=== PATIENT | female | born 1945 | race Caucasian/White ===

== ENCOUNTER 2017-11-24 14:51 | Outpatient (RCR) | payer MEDICARE ==
[2017-10-05 09:23] VITALS: BP 111/53
[2017-10-05 09:27] LABS: PLATELET COUNT, AUTOMATED 171 K/uL (150-450)
[~2017-11-24 14:51] MED LIST changes: +ALTEPLASE RECOMB 2 MG VIAL IVP PRN; +DEXTROSE 5%(*) 100 ML BAG 100 ML IVPB PRN; +HEPARIN FLSH (PORT) 500 UN/5ML IVP PRN; +LIDOCAINE/SOD BICARB 8.4% SYR ID PRN; +NS(*) 0.9% 100 ML BAG 100 ML IVPB PRN; +NS(*) 0.9% 500 ML BAG 500 ML IV PRN; +WATER STERILE 10 ML VIAL IVP PRN
== END 2018-01-03 ==
LOC: SPU 14:51
PROVIDERS: ATTEND Nurse Practitioner Family
DX: Z08 Encounter for follow-up examination after completed treatment for malignant neoplasm (principal); C88.0 Waldenstrom macroglobulinemia; R55 Syncope and collapse; R19.7 Diarrhea, unspecified; M19.90 Unspecified osteoarthritis, unspecified site; M54.2 Cervicalgia
CPT/HCPCS: 36591; 82040; 82247; 82310; 82374; 82435; 82565; 82947; 83735; 84075; 84100; 84132; 84155; 84295; 84450; 84460; 84520; 85025

== ENCOUNTER → 2017-11-24 | Outpatient (CLI) | payer MEDICARE ==
[~2017-11-24] MED LIST: ACET-2031 PO; ACY200 PO; ACYC-50 PO; BENZ1 PO; CALC-965 PO; CLIN-75 PO; DIC10 PO; DOXY-179 PO; DOXY-323 PO; HYDR-3503 PO; IPRA3AMP36 INH; KETC15T TP; LAMO200T46 PO; LOM PO; LOPE-111 PO; MUPI15CR10 TP; ONDA4TAB PO; OXYGEN INH; PANT40TA65 PO; POTA99TA22 PO; PYRI25TA PO; QUET50TA21 PO; ZITHROMAX; tumeric; tumeric PO
[2017-11-24 15:41] LABS: PLATELET COUNT, AUTOMATED 190 K/uL (150-450)
== END ==
LOC: SPU 15:23
PROVIDERS: ATTEND Nurse Practitioner Acute Care
DX: C88.0 Waldenstrom macroglobulinemia (principal); Z08 Encounter for follow-up examination after completed treatment for malignant neoplasm; R55 Syncope and collapse; R19.7 Diarrhea, unspecified; M19.90 Unspecified osteoarthritis, unspecified site; M54.2 Cervicalgia
CPT/HCPCS: 36591; 82040; 82247; 82310; 82374; 82435; 82565; 82947; 83735; 84075; 84100; 84132; 84155; 84295; 84450; 84460; 84520; 85025; 96523

== ENCOUNTER 2018-06-07 19:18 | Emergency (ER) | payer MEDICARE ==
[~2018-06-07 19:18] MED LIST changes: -ALTEPLASE RECOMB 2 MG VIAL IVP PRN; -DEXTROSE 5%(*) 100 ML BAG 100 ML IVPB PRN; -HEPARIN FLSH (PORT) 500 UN/5ML IVP PRN; -LIDOCAINE/SOD BICARB 8.4% SYR ID PRN; -NS(*) 0.9% 100 ML BAG 100 ML IVPB PRN; -NS(*) 0.9% 500 ML BAG 500 ML IV PRN; -WATER STERILE 10 ML VIAL IVP PRN
--- NOTE | 2018-06-07 19:22 | ER Report ---
History and Physical Time Seen By MD: 19:21 HPI/ROS CHIEF COMPLAINT: Shortness of breath, cough HISTORY OF PRESENT ILLNESS: 73-year-old female with extensive past medical history please see as noted below. Patient's had a cough for 2-3 days productive of green sputum. She denies fever or chills. She used her albuterol inhaler without improvement. Patient's concerned she be developing pneumonia. REVIEW OF SYSTEMS: Respiratory: As above Cardiovascular: No chest pain, no palpitations. Gastrointestinal: No vomiting, no abdominal pain. Musculoskeletal: No back pain. Allergies: Coded Allergies: shrimp (Verified Allergy, Severe, anaphalaxis, 10/07/15) Penicillins (Verified Allergy, Intermediate, feels high, doesn't help with pain, 10/07/15) sulfamethoxazole (Verified Allergy, Intermediate, SWELLING OF MUCOUS MEMBRANE, 10/07/15) trimethoprim (Verified Allergy, Intermediate, SWELLING OF MUCOUS MEMBRANE, 10/07/15) codeine (Verified Allergy, Unknown, 10/07/15) meperidine (Verified Adverse Reaction, Intermediate, N/V, 10/07/15) Uncoded Allergies: HAYFEVER (Allergy, Intermediate, RUNNY NOSE, SNEEZING, 02/29/12) Home Meds Active Scripts Cefuroxime Axetil (CEFUROXIME) 250 Mg Tablet, 250 MG PO BID for infection, #14 TAB Prov:CHRIS ALCARAZ DO 06/07/18 Reported Medications Cholecalciferol (Vitamin D3) (VITAMIN D3) 1,000 Unit Tablet, 1000 UNIT PO BID, TAB 06/07/18 Acyclovir (ACYCLOVIR) 200 Mg Capsule, 200 MG PO BID, #10 CAP 06/07/18 Doxycycline Hyclate (DOXYCYCLINE HYCLATE) 100 Mg Tablet, 400 MG PO BID PRN for PRN 10/07/15 Loperamide Hcl (LOPERAMIDE) 2 Mg Tablet, 8 MG PO PRN 10/07/15 Quetiapine Fumarate (SEROQUEL) 50 Mg Tablet, 50 MG PO QHS 10/07/15 Lamotrigine (LAMICTAL) 200 Mg Tablet, 200 MG PO QHS 10/07/15 Benztropine Mesylate (BENZTROPINE MESYLATE) 1 Mg Tablet, 1 MG PO PRN for cramps 10/07/15 Discontinued Reported Medications [tumeric] Unknown Strength No Conflict Check, PO QDAY 10/07/15 Past Medical/Surgical History Significant PMH of Anemia of chronic disease and Anemia of inflammation, secondary to Waldenstrom macroglobulinemia; Toxoplasmosis of the left eye; Emboli to the right second and third toes on anticoagulation since April of 2005. The patient is no longer on anticoagulation; Bipolar, on treatment. Incidental leiomyosarcoma during total abdominal hysterectomy and bilateral salpingo- oophorectomy done for a fibroid in 1993. Squamous cell skin cancer removed from right nose, right arm, and port site Living Conditions Lives alone. Social/Occupational History Social History: Social History This is a 73 Yr old White female, she is S Single and has [] Children Reviewed Nurses Notes: Yes Old Medical Records Reviewed: Yes Hx Smoking: No Smoking Status: Never Smoker Exposure to Second Hand Smoke?: No Hx Substance Use Disorder: No Hx Alcohol Use: Yes Constitutional Vital Sign - Last 24 Hours 06/07/18 06/07/18 06/07/18 06/07/18 19:22 19:22 19:30 19:33 Temp 98.0 Pulse 75 72 Resp 20 B/P (MAP) 140/80 140/80 (100) 135/92 (106) Pulse Ox 92 91 O2 Delivery Room Air 06/07/18 06/07/18 06/07/18 06/07/18 19:48 19:50 19:50 20:00 Pulse ??? 67 Resp 16 B/P (MAP) 124/65 (84) Pulse Ox 97 O2 Delivery Nasal Cannula O2 Flow Rate 1.0 06/07/18 06/07/18 20:03 20:18 Pulse 68 69 Pulse Ox 91 91 Physical Exam Vital signs stable, afebrile, pulse ox normal General Appearance: The patient is alert, has no immediate need for airway protection and no current signs of toxicity. Skin warm and dry, slightly pale appearing HEENT: Pupils equal and round no injection. TMs normal, oropharynx with moderate erythema, no exudate or tonsillar hypertrophy Respiratory: Chest is non tender, lungs are clear to auscultation. A few Velcro Rales were noted in the right base. Cardiac: regular rate and rhythm Gastrointestinal: Abdomen is soft and non tender, no masses, bowel sounds normal. Musculoskeletal: Neck: Neck is supple and non tender. No lymphadenopathy Extremities have full range of motion and are non tender. Skin: No rashes or lesions. DIFFERENTIAL DIAGNOSIS: After history and physical exam differential diagnosis was considered for shortness of breath including but not limited to pulmonary infectious process, COPD, asthma, pulmonary embolus and congestive heart failure. Medical Decision Making EKG/Imaging Imaging X-ray: Two-view chest x-ray was obtained. I viewed the images myself on the PACS system. My interpretation of the images is: No infiltrate, no effusion, normal mediastinum, intact port, comparison to previous chest x-ray dated 10/31/16. The radiologist interpretation had no clinically significant variation from this interpretation. ED Course/Re-evaluation ED Course Patient was admitted to an examination room. H&P was done. The differential diagnoses was considered. On clinical examination. Patient has a clear chest x-ray. She is treated with a DuoNeb. She feels much better. Her chest x-ray shows no obvious infiltrate. She'll be discharged home since she has significant immunosuppression on Ceftin for prevention of bronchitis and pneumonia. She is advised to follow-up with her oncology doctors if unimproved in 3-5 days. Decision to Disposition Date: Jun 07, 2018 Decision to Disposition Time: 20:01 Depart Departure Latest Vital Signs Vital Signs Date Time Temp Pulse Resp B/P (MAP) Pulse Ox O2 Delivery O2 Flow Rate FiO2 06/07/18 20:18 69 91 06/07/18 20:00 124/65 (84) 06/07/18 19:50 16 06/07/18 19:50 Nasal Cannula 1.0 06/07/18 19:22 98.0 Impression: Primary Impression: Bronchitis Additional Impressions: History of Waldenstrom's macroglobulinemia Near syncope Condition: Improved Disposition: HOME OR SELF-CARE Referrals: EDYTA HENRY DO (PCP) New Scripts Cefuroxime Axetil (CEFUROXIME) 250 Mg Tablet 250 MG PO BID for infection, #14 TAB Prov: CHRIS ALCARAZ DO 06/07/18 Patient Instructions: Acute Bronchitis (ED) Additional Instructions: Follow-up with oncology clinic if unimproved in 3-5 days. Problem Qualifiers CHRIS ALCARAZ DO Jun 07, 2018 19:22
[2018-06-07] MEDS ORDERED: ACYC-1 PO (19:37)
[2018-06-07] MEDS ORDERED: CHOL10005 PO (19:37)
[2018-06-07] MEDS ORDERED: ALBUTEROL/IPRATROPIUM 3 ML NEB NEB ONE (19:50)
[2018-06-07 20:00] VITALS: BP 124/65
--- NOTE | 2018-06-07 20:03 | RADIOLOGY IMAGING REPORT ---
FACILITY: [facility] PATIENT NAME: Jodee Fam : 1945 MR: [id number] V: [id number] EXAM DATE: ORDERING PHYSICIAN: CHRIS ALCARAZ TECHNOLOGIST: Location: [facility] Patient: Jodee Fam : 1945 Visit/Account:[id number] Date of Sevice: 06/07/2018 EXAMINATION: PA and Lateral Chest 06/07/2018 7:35 PM HISTORY: Congestion, productive cough. History of plasmacytosis. COMPARISON: 08/31/2017 FINDINGS: Cardiomediastinal contours: Stable heart size. Atherosclerotic aorta. Port catheter position is uncha nged with the tip over the lower SVC. Lungs and pleura: No change in pulmonary markings. No acute infiltrate or consolidation. Pleural spac es remain clear. Bones/soft tissues: No acute bony finding. IMPRESSION: Stable chest without acute cardiopulmonary abnormality. Report Dictated By: Orlando Person MD at 06/07/2018 7:58 PM Report E-Signed By: Orlnado Person MD at 06/07/2018 7:59 PM [id number]
[2018-06-07] MEDS ORDERED: CEFU250T11 PO (20:11)
[2018-06-07] MEDS ORDERED: CEFUROXIME AXETIL 250 MG TAB PO ONE (20:25)
== END 2018-06-07 20:40 | disposition home or self-care (01) ==
LOC: ER 19:35
DX: J40 Bronchitis, not specified as acute or chronic (principal); R55 Syncope and collapse; C88.0 Waldenstrom macroglobulinemia
CPT/HCPCS: 71046; 94640; 99283

== ENCOUNTER 2018-07-08 14:21 | Outpatient (RCR) | payer MEDICARE ==
[2018-04-25 14:17] LABS: PLATELET COUNT, AUTOMATED 212 K/uL (150-450)
[2018-04-26 13:13] VITALS: BP 128/60
--- NOTE | 2018-04-26 16:40 | Oncology Progress Note ---
History of Present Illness Evaluation Evaluation Date: Apr 26, 2018 Evaluation Time: 13:24 Primary Care Provider Primary Care Provider: Estee Mccall DO Accompanied by Accompanied by: Self Last seen by : Nurse Practitioner at cancer center on 10/05/13 Chief Complaint Chief Complaint Nutrition malabsorption ,and or deficit Oncology History Oncology History Initially was diagnosed in 2002 when she presented with a headache and an elevated ESR. She was thought to have temporal arteritis and a biopsy was negative. She was treated with high dose steroids without success. She was found during her elevation to have abnormal M protein. Her IgM level at that time was 2844. She was treated with a combination of fludarabine and rituximab in January of 2004 and October of 2004 and then the patient achieved a good partial response. - Her IgM level dropped to 1277 after that. - On May 08, 2005 she developed a discolored third toe of the right foot which showed an embolic occlusion. - There was also an embolic occlusion of the second right toe. - Patient had an autologous peroneal artery in the right leg and she was on anticoagulation therapy for that. Treatment Treatment 1. Between January of 2004 and March of 2004 she was treated with fludarabine and rituximab for three courses. Rituximab was discontinued after that due to a severe infusion reaction. 2. Between March of 2004 and October of 2004 she was treated with a single agent fludarabine for ten courses. 3. In July of 2008 she was treated with VDT-pace with prior stem cell harvest. 4. In June of 2009 to September of 2009 she received bortezomib, lenalidomide and dexamethasone for four courses. 5. In November of 2009 she received one course of fludarabine, most of her treatment was received at the center in [place]. 6. The patient was initially diagnosed with lymphoplasmacytic lymphoma or Waldenstrom macroglobulinemia in December of 2003, but she had an increased IgM level since 1998. 7. For progression of her disease, the patient received an autologous stem cell transplant in [place] in 2010. 8. On December 12, 2012, the patient followed with the myeloma clinic. At that time she was requiring several units of blood per week. She had positive Solomon test and unidentified antibodies. Bone marrow biopsy showed 25% lymphoplasmacytic cells, bone marrow cellularity was 60%. The patient was started on IVIg 30 grams times five days. 9. February 09, 2013 the patient was desensitized on January 23, 2013 from rituximab and received further rituximab dose on January 24, 2013. The patient then followed with Velcade and rituximab with rituximab on a weekly basis. 10. It is unclear exactly when the patient completed her full regimen of treatment. According to orders received on June 20, 2013 the patient was discharged to home with laboratory studies every other week and Aranesp and Neupogen therapy. BONE MARROW ASPIRATION BIOPSIES 1. April of 2006: 70% cellularity with 50% lymphoplasmacytic infiltrate, IgM level at that time was 1863. 2. June of 2008: 95% cellularity with 80% lymphoplasmacytic infiltrate, IgM level at that time was 3190. 3. May of 2009: Bone marrow was packed. 4. November of 2009: 90% cellularity with 80% lymphoplasmacytic cells. 5. December of 2009: 80% cellularity with 70% lymphoplasmacytic cells. 6. 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 with 50% bone marrow involvement with the presence of mass cells. Patient presented to the clinic to go over her lab values, and concerned for protein and nutrition intake. HS eis AAOX3, hemodynamically stable. denies cardiac type chest pain, SOB, abdominal pain, fevers, N/V. She does have history of IBS symptoms. Patient informs me that her protein intake mainly comes from pork, poultry and fish. She reports not able to eat beef as it makes her gut bleed. It appears that patient is being followed by different providers throughout her travelling, she tells me that she spends anywhere from 2 weeks to a whole year in [place], where she stays with her friends. She is mainly followed by Dr. Dru Barry a Hematology Oncologist at [facility], who specializes in Multiple Myeloma. She is been treated with similar protocol as MM patients. She was last seen seen by Dr. Barry team in 01/2018, a bone marrow biopsy was performed, and she is scheduled to get BM Biopsies q 3 months. Significant PMH of Anemia, secondary to Waldenstrom macroglobulinemia; Toxoplasmosis of the left eye; Emboli to the right second and third toes on anticoagulation since April of 2005. The patient is no longer on anticoagulation ; Bipolar, on treatment. 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 Diagnostic Studies Result Diagram: 04/25/18 1400 04/25/18 1400 Social/Occupational History Social History: Social History This is a 73 Yr old White female, she is S Single and has [] Children Hx Smoking: No Smoking Status: Never Smoker Exposure to Second Hand Smoke?: No Allergies & Medications Allergies: Coded Allergies: shrimp (Verified Allergy, Severe, anaphalaxis, 10/07/15) Penicillins (Verified Allergy, Intermediate, feels high, doesn't help with pain, 10/07/15) sulfamethoxazole (Verified Allergy, Intermediate, SWELLING OF MUCOUS MEMBRANE, 10/07/15) trimethoprim (Verified Allergy, Intermediate, SWELLING OF MUCOUS MEMBRANE , 10/07/15) codeine (Verified Allergy, Unknown, 10/07/15) meperidine (Verified Adverse Reaction, Intermediate, N/V, 10/07/15) Uncoded Allergies: HAYFEVER (Allergy, Intermediate, RUNNY NOSE, SNEEZING, 02/29/12) Home Meds Reported Medications Doxycycline Hyclate (DOXYCYCLINE HYCLATE) 100 Mg Tablet, 400 MG PO BID Y for PRN 10/07/15 [tumeric] Unknown Strength No Conflict Check, PO QDAY 10/07/15 Loperamide Hcl (LOPERAMIDE) 2 Mg Tablet, 8 MG PO PRN 10/07/15 Quetiapine Fumarate (SEROQUEL) 50 Mg Tablet, 50 MG PO QHS 10/07/15 Lamotrigine (LAMICTAL) 200 Mg Tablet, 200 MG PO QHS 10/07/15 Benztropine Mesylate (BENZTROPINE MESYLATE) 1 Mg Tablet, 1 MG PO PRN for cramps 10/07/15 Discontinued Reported Medications Clindamycin Hcl (CLINDAMYCIN HCL) 150 Mg Capsule, 150 MG PO BID, CAPSULE 10/07/15 Ketoconazole (KETOCONAZOLE) 15 Gm Cream..g., 1 BRANT TP QDAY, TUBE 10/07/15 Mupirocin Calcium (BACTROBAN) 15 Gm Cream..g., 1 BRANT TP QDAY 10/07/15 Acyclovir (ACYCLOVIR) 400 Mg Tablet, 400 MG PO BID, TAB 10/07/15 Discontinued Scripts Pantoprazole Sodium (PANTOPRAZOLE SODIUM) 40 Mg Tablet.dr, 40 MG PO QDAY, #30 TAB.SR Prov:GUSCLIFFORD CANAS 10/14/15 Review of Systems Constitution: Positive for Appetite/Weight Change, Denies Fever/Chills/Sweating , Denies Recent Infection, Denies Other HEENT: No EARS: Tinnitus, No NOSE: Nasal Discharge, No THROAT: Sore Throat, No EYES: Dipolpia, No EARS: Hearing Problems, No NOSE: Epistaxis, No THROAT: Mouth Ulcers, No EYES: Vision Change, No OTHER Respiratory: No Cough, No Expectoration, No Hemoptysis, No Shortness of Breath , No OTHER Cardiovascular: No Chest Pain, No Orthopnea, No Edema, No Palpitations, No OTHER Gastrointestinal: No Nausea, No Vomitting, Diarrehea, No Constipation, No Heart Burn, No Swallowing Difficulties, No Abdominal Pain, Other Gentiourinary: No Hematuria, No Dysuria, No Nocturia, No Other Musculoskeletal: Muscle Pain Hematological: No Bleeding, No Weakness, No Enlarged Lyph Nodes, No Bruising, No Fatigue, No Other Skin: No Skin Rash, Lumps, No Erythema, No Dry Skin, No Moist Skin, Other (of Basal and squamous cell ) Psychiatric: No Anxiety, No Depression, Other Vital Signs Vital Signs Temperature: 98.6 Pulse: 74 BP Systolic: 128 BP Diastolic: 60 Respiratory Rate: 16 O2 SAT: 90 O2 Delivery: Height (feet) Height (inches) 63.00 Weight lb: 128 Weight oz: Weight Kg (Gaetano): Pain: 0 ECOG-1 Strenuous physical activity restricted; fully ambulatory and able to carry out light work. Physical Exam General: Looks Stable, Well Developed, Well Nourished HEENT: HEAD:Atraumatic, No EYES: Conjuctivitis, No EYES: Icterus, No MOUTH: Mucocitis, No MOUTH: Oral Thrush, No SINUS: Tenderness to Palpation, No Other Neck: Supple, No Cervical Lymphadenopathy, No Subclavicular Lymphadopathy, No Thyromegaly, No Other Lungs: Clear to Auscultation, Percussion Bilaterally Heart: Regular Rate and Rhythm, No Gallops, No Murmurs, No Clicks, No Rubs, No Other Abdomen: Soft and Nontender, No Hepatosplenomegaly, No Masses, No Other Extremities: No Cyanosis, No Clubbing, No Edema, No Other Lymphatics: No Peripheral Lymphadenopathy, No Other Psychiatric: No Mood appears normal, No Affect appears normal, No Other Skin: Mild Errythema Breast: No No Masses, No No Nipple Discharge, No No Skin Changes, No Other Assessment and Plan Assessment and Plan 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 with 50% bone marrow involvement with the presence of mass cells. Significant PMH of Anemia, secondary to Waldenstrom macroglobulinemia; Toxoplasmosis of the left eye; Emboli to the right second and third toes on anticoagulation since April of 2005. The patient is no longer on anticoagulation ; Bipolar, on treatment. 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 DIAGNOSTIC DATA WBC 3.0; hgb 12.3; Hct 36.4; Platelet count 212k; ANC 1.0;BUN 22; Creatinine 1.20; Total Protein 6.5; Albumin 4.0. - 1. 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 Patientt's on treatment with Dr. Barry in [place], last saw MD in 01/2018 for full treatment, work up and bone marrow biopsy. We will continue to monitor counts monthly and offer supportive measures as needed. -2. Nurtitonal deficit /malabosrption. Total Protein 6.5; Albumin 4.0. in the setting of multifactorial disease given IBS. there is no cachexia, we will do a B12, folate work up for any nutritional deficiencies. as well as cold storage supervisor consult. patient informs me she is following up with GI Dr. Gaines in [place] towards end of April2018. - 3. Hx of skin squamous cell, basal cell carcinoma. per patient she has been treated with removal of skin cancer by Dermatology in [place]. She has a f/ u appointment in 06/2018 - 4. Hx of Anaphylactic allergic reactions. Last reactions was approximately 2 years ago. patient will be prescribe epipen to carry with her . - 5. Hx of Anemia. patient is asymptomatic with a hgb of 12.3 today.given the fact that last work up in the system was done in 2011. we will repeat work up panel today. CHRONIC 1. Lymphoplasmacytic lymphoma diagnosed in December of 2003. 2. Emboli in the second and third toes in April of 2005, completed anticoagulation therapy. 3. Hemangioma 1.5 cm diagnosed in April of 2006. 4. Left eye toxoplasmosis initially treated with Daraprim, clindamycin and leucovorin diagnosed in September of 2008. 5. Bipolar disorder. on treatment 6. 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 PLAN 1. Anemia Panel I work up, including Vitamin D 25 hydroxy 2. EPi pen 0.3mg/0.3ml to be administered Imx1 as needed. 3. Acyclovir 400mg PO BID #60pills PPfx antiviral 4. Nutrition consult with Dietiticharity Bennett, Nursing staff to call patient with appointment time. 5. Patient to provide medical record release to get notes and reports from Dr. Barry, and other providers, including Bone marrow report done on 01/2018, GI, and Dermatology report. 6. patient to f/u in 4 weeks with results of work up, and reports from different providers. 7. patient to contact cancer center with any issues or concerns TIME SPENT: 60 minutes 55> minutes includes but not limited to discussion, counselling and co-ordination~ of care. Discussion with other health care providers, record review, review of lab work, diagnostic tests. Plan discussed extensively with patient. All the questions answered today. Thank you for the opportunity to be involved in the care of Ms. Sarwat Ellsworth. Billing Level: Return visit 5 ANANTH ALEX, ONC Apr 26, 2018 13:24
[2018-04-27 10:16] VITALS: BP 123/60
[2018-05-31 12:15] VITALS: BP 122/70
--- NOTE | 2018-05-31 12:48 | Oncology Progress Note ---
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 She was thought to have temporal arteritis and a biopsy was negative. She was treated with high dose steroids without success. She was found during her elevation to have abnormal M protein. Her IgM level at that time was 2844. She was treated with a combination of fludarabine and rituximab in January of 2004 and October of 2004 and then the patient achieved a good partial response. - Her IgM level dropped to 1277 after that. - On May 08, 2005 she developed a discolored third toe of the right foot which showed an embolic occlusion. - There was also an embolic occlusion of the second right toe. - Patient had an autologous peroneal artery in the right leg and she was on anticoagulation therapy for that. Treatment Treatment 1. Between January of 2004 and March of 2004 she was treated with fludarabine and rituximab for three courses. Rituximab was discontinued after that due to a severe infusion reaction. 2. Between March of 2004 and October of 2004 she was treated with a single agent fludarabine for ten courses. 3. In July of 2008 she was treated with VDT-pace with prior stem cell harvest. 4. In June of 2009 to September of 2009 she received bortezomib, lenalidomide and dexamethasone for four courses. 5. In November of 2009 she received one course of fludarabine, most of her treatment was received at the center in [place]. 6. The patient was initially diagnosed with lymphoplasmacytic lymphoma or Waldenstrom macroglobulinemia in December of 2003, but she had an increased IgM level since 1998. 7. For progression of her disease, the patient received an autologous stem cell transplant in [place] in 2010. 8. On December 12, 2012, the patient followed with the myeloma clinic. At that time she was requiring several units of blood per week. She had positive Solomon test and unidentified antibodies. Bone marrow biopsy showed 25% lymphoplasmacytic cells, bone marrow cellularity was 60%. The patient was started on IVIg 30 grams times five days. 9. February 09, 2013 the patient was desensitized on January 23, 2013 from rituximab and received further rituximab dose on January 24, 2013. The patient then followed with Velcade and rituximab with rituximab on a weekly basis. 10. It is unclear exactly when the patient completed her full regimen of treatment. According to orders received on June 20, 2013 the patient was discharged to home with laboratory studies every other week and Aranesp and Neupogen therapy. BONE MARROW ASPIRATION BIOPSIES 1. April of 2006: 70% cellularity with 50% lymphoplasmacytic infiltrate, IgM level at that time was 1863. 2. June of 2008: 95% cellularity with 80% lymphoplasmacytic infiltrate, IgM level at that time was 3190. 3. May of 2009: Bone marrow was packed. 4. November of 2009: 90% cellularity with 80% lymphoplasmacytic cells. 5. December of 2009: 80% cellularity with 70% lymphoplasmacytic cells. 6. 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 with 50% bone marrow involvement with the presence of mass cells. Patient presented to the clinic todaya for management of her disease. She met with pipe blanks cut off saw operator, and she will implement the recommendations. We reviewed her labs in detail, besides Vit D level of 15, all other work up are within acceptable parameters. she is AAOX3 with some signs of memory loss, as she informs me that she will b attending a seminar [facility] in [place] about improving ones memory. Patient is hemodynamically stable, and afebrile, and doing well overall. She expressed to me the need to address her code status, as she would like to be made DNR/ DNI starting today 05/31/2018. I did arrange the assistance of Kelsi social media strategist to obtain forms. She denies cardiac type chest pain, SOB, abdominal pain, fevers, N/V. She does have history of IBS symptoms(controlled). Patient informs me that she had a skin cancerous lesions scraped out last Romel by her Staff Command And Control Officer in [place], she also saw the GI doctor , and he did not add or change any plan to her treatment. she plan to visit her Passenger Interline Clerk in [place] by 07/2018. She does spends anywhere from 2 weeks to a whole year in [place], where she stays with her friends. She is mainly followed by Dr. Dru Barry a Hematology Oncologist at [facility], who specializes in Multiple Myeloma. She is been treated with similar protocol as MM patients. She was last seen seen by Dr. Barry team in 02/03/2018, a bone marrow biopsy was performed, and she is scheduled to get BM Biopsies q 3 months , next one due in 07/2018. Recently had squamous cells recently removed from right cheek, right chest beside her chest port, and right forearm by dermatology. Significant PMH of Anemia of chronic disease and Anemia of inflammation, secondary to Waldenstrom macroglobulinemia; Toxoplasmosis of the left eye; Emboli to the right second and third toes on anticoagulation since April of 2005. The patient is no longer on anticoagulation; Bipolar, on treatment. 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 Living Conditions Lives alone. Social/Occupational History Social History: Social History This is a 73 Yr old White female, she is S Single and has [] Children Hx Smoking: No Smoking Status: Never Smoker Exposure to Second Hand Smoke?: No Allergies & Medications Allergies: Coded Allergies: shrimp (Verified Allergy, Severe, anaphalaxis, 10/07/15) Penicillins (Verified Allergy, Intermediate, feels high, doesn't help with pain, 10/07/15) sulfamethoxazole (Verified Allergy, Intermediate, SWELLING OF MUCOUS MEMBRANE, 10/07/15) trimethoprim (Verified Allergy, Intermediate, SWELLING OF MUCOUS MEMBRANE , 10/07/15) codeine (Verified Allergy, Unknown, 10/07/15) meperidine (Verified Adverse Reaction, Intermediate, N/V, 10/07/15) Uncoded Allergies: HAYFEVER (Allergy, Intermediate, RUNNY NOSE, SNEEZING, 02/29/12) Home Meds Reported Medications Doxycycline Hyclate (DOXYCYCLINE HYCLATE) 100 Mg Tablet, 400 MG PO BID Y for PRN 10/07/15 [tumeric] Unknown Strength No Conflict Check, PO QDAY 10/07/15 Loperamide Hcl (LOPERAMIDE) 2 Mg Tablet, 8 MG PO PRN 10/07/15 Quetiapine Fumarate (SEROQUEL) 50 Mg Tablet, 50 MG PO QHS 10/07/15 Lamotrigine (LAMICTAL) 200 Mg Tablet, 200 MG PO QHS 10/07/15 Benztropine Mesylate (BENZTROPINE MESYLATE) 1 Mg Tablet, 1 MG PO PRN for cramps 10/07/15 Review of Systems Constitution: Positive for Appetite/Weight Change, Denies Fever/Chills/Sweating , Denies Recent Infection, Denies Other HEENT: No EARS: Tinnitus, No NOSE: Nasal Discharge, No THROAT: Sore Throat, No EYES: Dipolpia, No EARS: Hearing Problems, No NOSE: Epistaxis, No THROAT: Mouth Ulcers, No EYES: Vision Change, No OTHER Respiratory: No Cough, No Expectoration, No Hemoptysis, No Shortness of Breath , No OTHER Cardiovascular: No Chest Pain, No Orthopnea, No Edema, No Palpitations, No OTHER Gastrointestinal: No Nausea, No Vomitting, Diarrehea, No Constipation, No Heart Burn, No Swallowing Difficulties, No Abdominal Pain, Other Gentiourinary: No Hematuria, No Dysuria, No Nocturia, No Other Musculoskeletal: Muscle Pain Hematological: No Bleeding, No Weakness, No Enlarged Lyph Nodes, No Bruising, No Fatigue, No Other Skin: No Skin Rash, Lumps, No Erythema, No Dry Skin, No Moist Skin, Other (of Basal and squamous cell ) Psychiatric: No Anxiety, No Depression, Other Vital Signs Vital Signs Temperature: 97.9 Pulse: 60 BP Systolic: 122 BP Diastolic: 70 Respiratory Rate: 16 O2 SAT: 95 O2 Delivery: Height (feet) Height (inches) 63.00 Weight lb: 128 Weight oz: Weight Kg (Gaetano): Pain: 0 Physical Exam General: Looks Stable, Well Developed, Well Nourished HEENT: HEAD:Atraumatic, No EYES: Conjuctivitis, No EYES: Icterus, No MOUTH: Mucocitis, No MOUTH: Oral Thrush, No SINUS: Tenderness to Palpation, Other Neck: Supple, No Cervical Lymphadenopathy, No Subclavicular Lymphadopathy, No Thyromegaly, No Other Lungs: Clear to Auscultation, Percussion Bilaterally Heart: Regular Rate and Rhythm, No Gallops, No Murmurs, No Clicks, No Rubs, No Other Abdomen: Soft and Nontender, No Hepatosplenomegaly, No Masses, No Other Extremities: No Cyanosis, No Clubbing, No Edema, No Other Lymphatics: No Peripheral Lymphadenopathy, No Other Psychiatric: No Mood appears normal, No Affect appears normal, Other Skin: Mild Errythema, Other (squmous cells recently removed from right cheek, right chest beside her chest port, and right forearm by derm.) Breast: No No Masses, No No Nipple Discharge, No No Skin Changes, No Other Assessment and Plan Assessment and Plan 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 with 50% bone marrow involvement with the presence of mass cells. Patient presented to the clinic todaya for management of her disease. She met with pipe blanks cut off saw operator, and she will implement the recommendations. We reviewed her labs in detail, besides Vit D level of 15, all other work up are within acceptable parameters. she is AAOX3 with some signs of memory loss, as she informs me that she will b attending a seminar [facility] in [place] about improving ones memory. Patient is hemodynamically stable, and afebrile, and doing well overall. she denies cardiac type chest pain, SOB, abdominal pain, fevers, N/V. She does have history of IBS symptoms(controlled). Patient Recently had squamous cells recently removed from right cheek, right chest beside her chest port, and right forearm by dermatology on 06/27/2018 aprox per patient. Excisionals, healing, no drainage, no signs of infection. DIAGNOSTIC DATA as of WBC 3.0; hgb 12.3; Hct 36.4; Platelet count 212k; ANC 1.0;BUN 22; Creatinine 1.20; Total Protein 6.5; Albumin 4.0. Vitamin B12 990; Elin Sibley capacity 80.31; vitamin D 25 hydroxy 15; folate > 22.3 - 1. 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 Patientt's on treatment with Dr. Barry in [place], last saw MD in 01/2018 for full treatment, work up and bone marrow biopsy. We will continue to monitor counts monthly and offer supportive measures as needed. -2. Nurtitonal deficit /malabsorption. patient met with pipe blanks cut off saw operator today, and agrees with new treatment plan. Total Protein 6.5; Albumin 4.0. in the setting of multifactorial disease given IBS. there is no cachexia, we will do a B12, folate work up for any nutritional deficiencies. as well as pipe blanks cut off saw operator consult. patient informs me she is following up with GI Dr. Gaines in [place] towards end of April2018. - 3. Hx of skin squamous cell, basal cell carcinoma. Patient Recently had squamous cells recently removed from right cheek, right chest beside her chest port, and right forearm by dermatology on 06/27/2018 aprox per patient. Excisionals, healing, no drainage, no signs of infection. - 4. Hx of Anaphylactic allergic reactions. Last reactions was approximately 2 years ago. patient will be prescribe epipen to carry with her . - 5. Hx of Anemia. patient is asymptomatic with a hgb of 12.3 today. Anemia of chronic disease and Anemia of inflammation, secondary to Waldenstrom macroglobulinemia; anemia panel within acceptable parameters except Vit D of 15. Instructed patient to continue to take Vit D OTC 5000units Po BID. - 6. Vit D deficiency.lab value reveal a level of Vit D -15. Instructed patient to continue to take Vit D OTC 5000units Po BID. -7. Unsteady Gait. on exam patient has multiple bruises, she informs me is from bumping herself, as she gets a little weak on her feet. We will order a walker, and patient to continue PT. CHRONIC 1. Lymphoplasmacytic lymphoma diagnosed in December of 2003. 2. Emboli in the second and third toes in April of 2005, completed anticoagulation therapy. 3. Hemangioma 1.5 cm diagnosed in April of 2006. 4. Left eye toxoplasmosis initially treated with Daraprim, clindamycin and leucovorin diagnosed in September of 2008. 5. Bipolar disorder. on treatment 6. 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 PLAN 1. Anemia Panel I work up, including Vitamin D 25 hydroxy 2. EPi pen 0.3mg/0.3ml to be administered Imx1 as needed. 3. Continue to take Acyclovir 200mg PO BID #90pills plus one refill PPfx antiviral 4. Nutrition consult done today with Dietitian Sabrina, 5. We will order a wheeled walker Rx given to patient today, and patient to continue PT. 6. Patient to continue to f/u PRN 7. Patient expressed need to be made DNR/DNI today. 05/31/2018. form in the chart. Patient to contact cancer center with any issues or concerns TIME SPENT: 30 minutes 25> minutes includes but not limited to discussion, counselling and co-ordination~ of care. Discussion with other health care providers, record review, review of lab work, diagnostic tests. Plan discussed extensively with patient. All the questions answered today. Thank you for the opportunity to be involved in the care of Ms. Sarwat Ellsworth. Billing Level: Return visit 4 ANANTH ALEX, ONC May 31, 2018 12:47
[2018-05-31] MEDS: HEPARIN FLSH (PORT) 500 UN/5ML IVP PRN (13:34)
--- NOTE | 2018-05-31 14:54 | Medical Nutrition Therapy ---
Nutrition Anthropometrics Height (Inches): 63.00 Weight (Pounds): 128 (pt states her weight has been stable, UBW 135 lbs) Nutritional Education Nutrition Education Topic: Other (Diarrhea management ) Learning Readiness: Interested Teaching Methods: Discussion, Handout Response to Teaching: Verbalize understanding Teaching Recipient: Patient Nutrition Counseling: Patient stated she is concerned about diarrhea and swallowing/choking on food d/t dryness of food. reveiwed information on insoluble and soluble fiber and discussed ways to increase soluble fiber to help manage diarrhea. Patient agreed to track intake and GI symptoms she experiences post meals. Nutrition Monitoring & Eval Nutrition Goals: Eat 75-100% Meal, Drink > 1500 cc/day Nutritional Goals Comment: Patients EEN: 1500 - 1600 january/day with 50 gram of protein Encouraged patient to experiment with limiting legumes and whole grains (high fiber foods) to see if there is an improvement with her diarrhea Encouraged fluids with meals to help with dryness of foods RD Patient Assessment Time: [address] Assessment Type: RD Education Patient Nutrition Acuity: 3-Mild Nutritional Comment: Will F/U with patient next week to review intake tracking and symptoms and provide additional education if needed. SHAILA LESTER RDN, LD May 31, 2018 14:51
[~2018-07-08] VITALS: Ht 160 cm; Wt 58.1 kg
[~2018-07-08 14:21] MED LIST changes: +ACYC-1 PO; +ALTEPLASE RECOMB 2 MG VIAL IVP PRN; +CEFU250T11 PO; +CHOL10005 PO; +DEXTROSE 5%(*) 100 ML BAG 100 ML IVPB PRN; +LIDOCAINE/SOD BICARB 8.4% SYR ID PRN; +NS(*) 0.9% 100 ML BAG 100 ML IVPB PRN; +NS(*) 0.9% 500 ML BAG 500 ML IV PRN; +WATER FOR INJ,STERILE 20 ML IVP PRN
[2018-07-08 14:26] VITALS: BP 169/77
[2018-07-08] MEDS: HEPARIN FLSH (PORT) 500 UN/5ML IVP PRN (14:38)
== END 2018-07-21 ==
LOC: SPU 14:21
PROVIDERS: ATTEND Internal Medicine Hematology
DX: Z08 Encounter for follow-up examination after completed treatment for malignant neoplasm (principal); C88.0 Waldenstrom macroglobulinemia; D63.8 Anemia in other chronic diseases classified elsewhere; K90.9 Intestinal malabsorption, unspecified; Z85.828 Personal history of other malignant neoplasm of skin; F31.9 Bipolar disorder, unspecified; Z86.711 Personal history of pulmonary embolism
CPT/HCPCS: 36415; 82306; 82607; 82728; 82746; 82747; 83540; 83550; 83735; 83921; 84100; 85025; 96523; G0463; J1642; 82040; 82247; 82310; 82374; 82435; 82565; 82947; 84075; 84132; 84155; 84295; 84450; 84460; 84520; 99212

== ENCOUNTER 2018-09-20 14:30 | Outpatient (RCR) | payer MEDICARE | END 2018-09-20 16:47 | disposition home or self-care (01) | LOC: SPU 14:30 | PROVIDERS: ATTEND Internal Medicine Hematology | DX: Z08 Encounter for follow-up examination after completed treatment for malignant neoplasm (principal); C88.0 Waldenstrom macroglobulinemia; D63.8 Anemia in other chronic diseases classified elsewhere; K90.9 Intestinal malabsorption, unspecified; Z85.828 Personal history of other malignant neoplasm of skin; F31.9 Bipolar disorder, unspecified; Z86.711 Personal history of pulmonary embolism ==

== ENCOUNTER → 2018-09-20 | Outpatient (CLI) | payer MEDICARE ==
[~2018-09-20] MED LIST changes: -ALTEPLASE RECOMB 2 MG VIAL IVP PRN; -DEXTROSE 5%(*) 100 ML BAG 100 ML IVPB PRN; -LIDOCAINE/SOD BICARB 8.4% SYR ID PRN; -NS(*) 0.9% 100 ML BAG 100 ML IVPB PRN; -NS(*) 0.9% 500 ML BAG 500 ML IV PRN; -WATER FOR INJ,STERILE 20 ML IVP PRN
[2018-09-20 16:39] LABS: PLATELET COUNT, AUTOMATED 252 K/uL (150-450)
== END ==
LOC: SPU 15:30
PROVIDERS: ATTEND Internal Medicine Hematology & Oncology
DX: Z08 Encounter for follow-up examination after completed treatment for malignant neoplasm (principal); C88.0 Waldenstrom macroglobulinemia; D63.8 Anemia in other chronic diseases classified elsewhere; K90.9 Intestinal malabsorption, unspecified; Z85.828 Personal history of other malignant neoplasm of skin; F31.9 Bipolar disorder, unspecified; Z86.711 Personal history of pulmonary embolism; E85.9 Amyloidosis, unspecified
CPT/HCPCS: 82310; 82374; 82435; 82565; 82977; 83615; 83735; 84075; 84100; 84132; 84295; 84450; 84460; 84520; 85025; 96523

== ENCOUNTER → 2018-11-01 | Outpatient (CLI) | payer MEDICARE ==
[~2018-11-01] MED LIST changes: +ALTEPLASE RECOMB 2 MG VIAL IVP PRN; +DEXTROSE 5%(*) 100 ML BAG 100 ML IVPB PRN; +HEPARIN FLSH (PORT) 500 UN/5ML IVP PRN; +LIDOCAINE/SOD BICARB 8.4% SYR ID PRN; +NS(*) 0.9% 100 ML BAG 100 ML IVPB PRN; +NS(*) 0.9% 500 ML BAG 500 ML IV PRN; +WATER FOR INJ,STERILE 20 ML IVP PRN
[2018-11-01 14:55] VITALS: BP 158/94
[2018-11-01 15:23] LABS: PLATELET COUNT, AUTOMATED 217 K/uL (150-450)
== END ==
LOC: SPU 07:42
PROVIDERS: ATTEND Internal Medicine Hematology & Oncology
DX: Z08 Encounter for follow-up examination after completed treatment for malignant neoplasm (principal); C88.0 Waldenstrom macroglobulinemia; D63.8 Anemia in other chronic diseases classified elsewhere; K90.9 Intestinal malabsorption, unspecified; Z85.828 Personal history of other malignant neoplasm of skin; F31.9 Bipolar disorder, unspecified; Z86.711 Personal history of pulmonary embolism; E85.9 Amyloidosis, unspecified
CPT/HCPCS: 36591; 82310; 82565; 82977; 83615; 83735; 84075; 84100; 84450; 84460; 84520; 85025; J1642; 82374; 82435; 84132; 84295

== ENCOUNTER 2018-12-30 16:31 | Emergency (ER) | payer MEDICARE ==
[~2018-12-30 16:31] MED LIST changes: -ALTEPLASE RECOMB 2 MG VIAL IVP PRN; -DEXTROSE 5%(*) 100 ML BAG 100 ML IVPB PRN; -HEPARIN FLSH (PORT) 500 UN/5ML IVP PRN; -LIDOCAINE/SOD BICARB 8.4% SYR ID PRN; -NS(*) 0.9% 100 ML BAG 100 ML IVPB PRN; -NS(*) 0.9% 500 ML BAG 500 ML IV PRN; -WATER FOR INJ,STERILE 20 ML IVP PRN
--- NOTE | 2018-12-30 16:50 | ER Report ---
History and Physical Time Seen By MD: 16:50 Hx. of Stated Complaint: PATIENT REPORTS THAT SHE HAS HAD HIGH BLOOD PRESSURE FOR "A LONG TIME" HPI/ROS CHIEF COMPLAINT: Hypertension HISTORY OF PRESENT ILLNESS: 73-year-old female patient presents to emergency room with complaint of hypertension. Patient states that she has had high blood pressure for quite some time. Patient states that she has had a headache for the last few days. She went to her eye doctor because of the photophobia. She states that they checked her blood pressure and recommended that she follow-up with her primary care provider. She: Speak with her primary care provider, Dr. Fontanez, who informed her that she was leaving town today and it was not able to see her. She states that if symptoms persisted or worsened to go to the emergency room. Patient states she's had persistent headache for the past several days with no improvement. She has not taken any medications for these. Patient states that her blood pressure is variable and has been as high as 180 and then can get as low as 110. She states that medications tend to affect her quickly. REVIEW OF SYSTEMS: Respiratory: No cough, no dyspnea. Cardiovascular: No chest pain, no palpitations. Gastrointestinal: No vomiting, no abdominal pain. Musculoskeletal: No back pain. Allergies: Coded Allergies: shrimp (Verified Allergy, Severe, anaphalaxis, 10/07/15) Penicillins (Verified Allergy, Intermediate, feels high, doesn't help with pain, 10/07/15) sulfamethoxazole (Verified Allergy, Intermediate, SWELLING OF MUCOUS MEMBRANE, 10/07/15) trimethoprim (Verified Allergy, Intermediate, SWELLING OF MUCOUS MEMBRANE, 10/07/15) codeine (Verified Allergy, Unknown, 10/07/15) meperidine (Verified Adverse Reaction, Intermediate, N/V, 10/07/15) Uncoded Allergies: HAYFEVER (Allergy, Intermediate, RUNNY NOSE, SNEEZING, 02/29/12) Home Meds Active Scripts Lisinopril (LISINOPRIL) 10 Mg Tablet, 10 MG PO QDAY, #30 TAB Prov:EMMANUEL GARDINER COYOTE HUNTER 12/30/18 Reported Medications Cholecalciferol (Vitamin D3) (VITAMIN D3) 1,000 Unit Tablet, 1000 UNIT PO BID, TAB 06/07/18 Acyclovir (ACYCLOVIR) 200 Mg Capsule, 200 MG PO BID, #10 CAP 06/07/18 Loperamide Hcl (LOPERAMIDE) 2 Mg Tablet, 8 MG PO PRN 10/07/15 Quetiapine Fumarate (SEROQUEL) 50 Mg Tablet, 50 MG PO QHS 10/07/15 Lamotrigine (LAMICTAL) 200 Mg Tablet, 200 MG PO QHS 10/07/15 Benztropine Mesylate (BENZTROPINE MESYLATE) 1 Mg Tablet, 1 MG PO PRN for cramps 10/07/15 Discontinued Reported Medications Doxycycline Hyclate (DOXYCYCLINE HYCLATE) 100 Mg Tablet, 400 MG PO BID PRN for PRN 10/07/15 Discontinued Scripts Cefuroxime Axetil (CEFUROXIME) 250 Mg Tablet, 250 MG PO BID for infection, #14 TAB Prov:CHRIS ALCARAZ DO 06/07/18 Past Medical/Surgical History Patient has a past medical history of TIA, migraines, pericardial effusion, heart murmur, angina, irregular heartbeat, DVT, asthma, amyloidosis stomach, reflux, HPV, arthritis, rib fractures, HPV, alcohol use, bipolar, cancer. Patient has a surgical history of basal cell cancer removed, cataract surgery, tonsillectomy, back surgery, bunionectomy, hysterectomy, colonoscopy, hysterectomy, cardiac catheter. Patient has a family medical history of CAD, stroke. Reviewed Nurses Notes: Yes Hx Smoking: No Smoking Status: Never Smoker Exposure to Second Hand Smoke?: No Hx Substance Use Disorder: No Hx Alcohol Use: Yes Constitutional Vital Sign - Last 24 Hours 12/30/18 12/30/18 12/30/18 12/30/18 16:41 16:41 17:01 17:11 Temp 97.7 Pulse 76 67 Resp 20 9 B/P (MAP) 213/101 (138) 213/101 181/90 (120) Pulse Ox 92 95 O2 Delivery Room Air 12/30/18 12/30/18 12/30/18 12/30/18 17:31 17:35 18:01 18:06 Pulse 67 ??? Resp 17 B/P (MAP) 224/107 (146) Pulse Ox 95 80 12/30/18 12/30/18 12/30/18 12/30/18 18:30 18:36 18:41 18:56 Pulse 68 67 66 Resp 25 37 11 B/P (MAP) 199/94 (129) Pulse Ox 86 93 97 12/30/18 12/30/18 12/30/18 12/30/18 19:11 19:13 19:20 19:24 Pulse 69 Resp 14 B/P (MAP) 192/93 (126) 183/91 (121) 184/106 (132) Pulse Ox 84 12/30/18 12/30/18 12/30/18 12/30/18 19:26 19:30 19:35 19:40 Pulse 63 61 Resp 8 12 B/P (MAP) 152/78 (102) 141/76 (97) Pulse Ox 93 88 12/30/18 12/30/18 12/30/18 12/30/18 19:50 19:55 20:00 20:10 Pulse 57 Resp 8 16 12 B/P (MAP) 136/74 (94) 151/75 (100) 145/76 (99) Pulse Ox 90 96 96 12/30/18 12/30/18 12/30/18 20:20 20:25 20:30 Pulse 76 Resp 45 B/P (MAP) 140/85 (103) 141/92 (108) Physical Exam General Appearance: The patient is alert, has no immediate need for airway protection and no current signs of toxicity. Eyes: Pupils equal and round no injection. Respiratory: Chest is non tender, lungs are clear to auscultation. Cardiac: regular rate and rhythm Gastrointestinal: Abdomen is soft and non tender, no masses, bowel sounds normal. Musculoskeletal: Neck: Neck is supple and non tender. Extremities have full range of motion and are non tender. Skin: No rashes or lesions. Neuro: Patient is alert and oriented 4, cranial nerves II through XII grossly intact. DIFFERENTIAL DIAGNOSIS: After history and physical exam differential diagnosis was considered for headache including but not limited to subarachnoid hemorrhage, migraine headache, tension headache and infectious causes such as meningitis, pharyngitis and sinusitis. Medical Decision Making Data Points Result Diagram: 12/30/18 1735 12/30/18 1735 Laboratory Hematology Test 12/30/18 17:35 12/30/18 18:22 Red Blood Count 4.58 M/uL (4.17-5.56) Mean Corpuscular Volume 88.3 fL (80.0-96.0) Mean Corpuscular Hemoglobin 29.1 pg (26.0-33.0) Mean Corpuscular Hemoglobin Concent 33.0 g/dL (32.0-36.0) Red Cell Distribution Width 14.2 % (11.5-14.5) Mean Platelet Volume 7.0 fL (7.2-11.1) Neutrophils (%) (Auto) 53.9 % (39.4-72.5) Lymphocytes (%) (Auto) 34.7 % (17.6-49.6) Monocytes (%) (Auto) 7.7 % (4.1-12.4) Eosinophils (%) (Auto) 2.8 % (0.4-6.7) Basophils (%) (Auto) 0.9 % (0.3-1.4) Nucleated RBC Relative Count (auto) 0.0 /100WBC Neutrophils # (Auto) 2.3 K/uL (2.0-7.4) Lymphocytes # (Auto) 1.5 K/uL (1.3-3.6) Monocytes # (Auto) 0.3 K/uL (0.3-1.0) Eosinophils # (Auto) 0.1 K/uL (0.0-0.5) Basophils # (Auto) 0.0 K/uL (0.0-0.1) Nucleated RBC Absolute Count (auto) 0.00 K/uL Sodium Level 140 mmol/L (137-145) Potassium Level 4.2 mmol/L (3.5-5.0) Chloride Level 105 mmol/L (98-107) Carbon Dioxide Level 27 mmol/L (22-31) Blood Urea Nitrogen 20 mg/dl (7-18) Creatinine 1.30 mg/dl (0.52-1.04) Glomerular Filtration Rate Calc 40.3 Random Glucose 75 mg/dl (75-110) Calcium Level 9.1 mg/dl (8.4-10.2) Total Bilirubin 0.4 mg/dl (0.2-1.3) Aspartate Amino Transf (AST/SGOT) 37 U/L (0-35) Alanine Aminotransferase (ALT/SGPT) 18 U/L (0-56) Alkaline Phosphatase 113 U/L (0-126) Troponin I < 0.012 ng/ml Total Protein 6.7 g/dl (6.3-8.2) Albumin 4.1 g/dl (3.5-5.0) Urine Color Straw Urine Clarity Clear Urine pH 7.0 pH (4.8-9.5) Urine Specific [place] 1.009 Urine Protein Negative mg/dL (NEGATIVE) Urine Glucose (UA) Negative mg/dL (NEGATIVE) Urine Ketones Negative mg/dL (NEGATIVE) Urine Blood Negative (NEGATIVE) Urine Nitrite Negative (NEGATIVE) Urine Bilirubin Negative (NEGATIVE) Urine Urobilinogen Negative mg/dL (0.2-1.9) Urine Leukocyte Esterase Negative (NEGATIVE) Urine RBC 1 /HPF (0-2/HPF) Urine WBC 1 /HPF (0-5/HPF) Urine Squamous Epithelial Cells Many /LPF (</=FEW) Urine Bacteria Negative /HPF (NONE-FEW) Urine Mucus None /HPF (NONE-FEW) Chemistry Test 12/30/18 17:35 12/30/18 18:22 White Blood Count 4.3 k/uL (4.5-11.0) Red Blood Count 4.58 M/uL (4.17-5.56) Hemoglobin 13.4 g/dL (12.0-16.0) Hematocrit 40.5 % (34.0-47.0) Mean Corpuscular Volume 88.3 fL (80.0-96.0) Mean Corpuscular Hemoglobin 29.1 pg (26.0-33.0) Mean Corpuscular Hemoglobin Concent 33.0 g/dL (32.0-36.0) Red Cell Distribution Width 14.2 % (11.5-14.5) Platelet Count 233 K/uL (150-450) Mean Platelet Volume 7.0 fL (7.2-11.1) Neutrophils (%) (Auto) 53.9 % (39.4-72.5) Lymphocytes (%) (Auto) 34.7 % (17.6-49.6) Monocytes (%) (Auto) 7.7 % (4.1-12.4) Eosinophils (%) (Auto) 2.8 % (0.4-6.7) Basophils (%) (Auto) 0.9 % (0.3-1.4) Nucleated RBC Relative Count (auto) 0.0 /100WBC Neutrophils # (Auto) 2.3 K/uL (2.0-7.4) Lymphocytes # (Auto) 1.5 K/uL (1.3-3.6) Monocytes # (Auto) 0.3 K/uL (0.3-1.0) Eosinophils # (Auto) 0.1 K/uL (0.0-0.5) Basophils # (Auto) 0.0 K/uL (0.0-0.1) Nucleated RBC Absolute Count (auto) 0.00 K/uL Glomerular Filtration Rate Calc 40.3 Calcium Level 9.1 mg/dl (8.4-10.2) Total Bilirubin 0.4 mg/dl (0.2-1.3) Aspartate Amino Transf (AST/SGOT) 37 U/L (0-35) Alanine Aminotransferase (ALT/SGPT) 18 U/L (0-56) Alkaline Phosphatase 113 U/L (0-126) Troponin I < 0.012 ng/ml Total Protein 6.7 g/dl (6.3-8.2) Albumin 4.1 g/dl (3.5-5.0) Urine Color Straw Urine Clarity Clear Urine pH 7.0 pH (4.8-9.5) Urine Specific [place] 1.009 Urine Protein Negative mg/dL (NEGATIVE) Urine Glucose (UA) Negative mg/dL (NEGATIVE) Urine Ketones Negative mg/dL (NEGATIVE) Urine Blood Negative (NEGATIVE) Urine Nitrite Negative (NEGATIVE) Urine Bilirubin Negative (NEGATIVE) Urine Urobilinogen Negative mg/dL (0.2-1.9) Urine Leukocyte Esterase Negative (NEGATIVE) Urine RBC 1 /HPF (0-2/HPF) Urine WBC 1 /HPF (0-5/HPF) Urine Squamous Epithelial Cells Many /LPF (</=FEW) Urine Bacteria Negative /HPF (NONE-FEW) Urine Mucus None /HPF (NONE-FEW) Urinalysis Test 12/30/18 18:22 Urine Color Straw Urine Clarity Clear Urine pH 7.0 pH (4.8-9.5) Urine Specific [place] 1.009 Urine Protein Negative mg/dL (NEGATIVE) Urine Glucose (UA) Negative mg/dL (NEGATIVE) Urine Ketones Negative mg/dL (NEGATIVE) Urine Blood Negative (NEGATIVE) Urine Nitrite Negative (NEGATIVE) Urine Bilirubin Negative (NEGATIVE) Urine Urobilinogen Negative mg/dL (0.2-1.9) Urine Leukocyte Esterase Negative (NEGATIVE) Urine RBC 1 /HPF (0-2/HPF) Urine WBC 1 /HPF (0-5/HPF) Urine Squamous Epithelial Cells Many /LPF (</=FEW) Urine Bacteria Negative /HPF (NONE-FEW) Urine Mucus None /HPF (NONE-FEW) EKG/Imaging Imaging 2 VIEWS CHEST INDICATION: High blood pressure. COMPARISON: 06/07/2018. FINDINGS: Cardiomediastinal silhouette and pulmonary vessels within normal limits. Right Port-A-Cath is in place with the tip in SVC and unchanged. There is no focal infiltrate or lobar consolidation. There is no pneumothorax or pleural effusion. No nodule. Mild chronic interstitial changes are again present. Upper abdomen is unremarkable. No acute bony abnormality. IMPRESSION: 1. Stable chest without acute cardiopulmonary disease. Report Dictated By: Herb Belle at 12/30/2018 7:14 PM Report E-Signed By: Herb Belle at 12/30/2018 7:[address] scan without contrast COMPARISONS: None ADDITIONAL PERTINENT HISTORY: Headache TECHNIQUE: Multiple axial images were obtained from the skull base to the vertex without IV contrast. One of the following dose optimization techniques was utilized in the performance of this exam: Automated exposure control; adjustment of the mA and/or kV according to the patient's size; or use of an iterative reconstruction technique. Specific details can be referenced in the facility's radiology CT exam operational policy. FINDINGS: Midline shift: Negative Ventricles: Mild enlargement of the lateral and third ventricles. Otherwise negative Brain parenchyma: Patchy hypoattenuation within the periventricular and subcortical white matter, nonspecific but likely representing small vessel ischemic change on a chronic basis. Extra-axial spaces: Mild cerebral atrophy. Intracranial vasculature: Cavernous internal carotid artery calcifications. Otherwise negative Osseous structures: Negative Paranasal sinuses and mastoid air cells: Small mucous retention cyst involving the left sphenoid sinus. Surrounding soft tissues and orbits: Negative IMPRESSION: 1. Age related changes as described above. 2. No evidence of acute intracranial pathology. Report Dictated By: Jason Mccormick MD at 12/30/2018 6:44 PM Report E-Signed By: Jason Mccormick MD at 12/30/2018 6:46 PM ED Course/Re-evaluation ED Course Patient is admitted to exam room, history and physical were obtained. Differential diagnoses were considered. On examination lungs are clear, heart is regular, abdomen is soft and nontender. Neurologically the patient is alert and oriented 4, cranial nerves II through XII grossly intact. An IV was started, a CBC, CMP, urinalysis were obtained. Lab results were unremarkable. Chest x-ray was done which was negative. CT scan of the head was also done which showed no acute findings. Patient did have a blood pressure of 199/109 when I went in to the room to discuss the findings. We did go ahead and treat her with 10 mg of labetalol. We were able to get her blood pressure down to 140/80. Patient states she does feel better. We will go ahead and discharge her home at this time. We are going to treat her with 10 mg of lisinopril. I would like her to follow-up with Dr. Fontanez in this next week. Patient verbalized understanding and agreement with plan. Decision to Disposition Date: Dec 30, 2018 Decision to Disposition Time: 20:05 Depart Departure Latest Vital Signs Vital Signs Date Time Temp Pulse Resp B/P (MAP) Pulse Ox O2 Delivery O2 Flow Rate FiO2 12/30/18 20:30 141/92 (108) 12/30/18 20:25 76 45 12/30/18 20:10 96 12/30/18 16:41 97.7 Room Air Impression: Primary Impression: Hypertensive urgency Condition: Improved Disposition: HOME OR SELF-CARE Referrals: EDYTA FONTANEZ DO (PCP) New Scripts Lisinopril (LISINOPRIL) 10 Mg Tablet 10 MG PO QDAY, #30 TAB Prov: EMMANUEL GARDINER 12/30/18 Patient Instructions: Hypertension (ED) Additional Instructions: Increase fluid intake. Get plenty of rest. Follow up with Dr. Fontanez next week. Take the medication as prescribed. EMMANUEL GARDINER Dec 30, 2018 16:50
--- NOTE | 2018-12-30 17:40 | EKG ---
FACILITY: [facility] - [place] PATIENT NAME: LEONORA FUNG : [id number] MR: [id number] V: [id number] EXAM DATE: ORDERING PHYSICIAN: EMMANUEL GARDINER TECHNOLOGIST: Test Reason : High BP w/headache Blood Pressure : / mmHG Vent. Rate : 071 BPM Atrial Rate : 071 BPM P-R Int : 182 ms QRS Dur : 084 ms QT Int : 384 ms P-R-T Axes : 071 043 076 degrees QTc Int : 417 ms Normal sinus rhythm Normal ECG No previous ECGs available Confirmed by Nicolás Mckee ([id number]) on 12/30/2018 7:29:18 PM Referred By: Confirmed By:Nicolás Cordero
[2018-12-30 17:52] LABS: PLATELET COUNT, AUTOMATED 233 K/uL (150-450)
--- NOTE | 2018-12-30 18:50 | RADIOLOGY IMAGING REPORT ---
FACILITY: [facility] PATIENT NAME: Jodee Fam : 1945 MR: [id number] V: [id number] EXAM DATE: ORDERING PHYSICIAN: EMMANUEL GARDINER TECHNOLOGIST: Location: [facility] [place] Patient: Jodee Fam : 1945 Visit/Account:[id number] Date of Sevice: 12/30/[address] scan without contrast COMPARISONS: None ADDITIONAL PERTINENT HISTORY: Headache TECHNIQUE: Multiple axial images were obtained from the skull base to the vertex without IV contrast . One of the following dose optimization techniques was utilized in the performance of this exam: Aut omated exposure control; adjustment of the mA and/or kV according to the patient's size; or use of an iterative reconstruction technique. Specific details can be referenced in the facility's radiology CT exam operational policy. FINDINGS: Midline shift: Negative Ventricles: Mild enlargement of the lateral and third ventricles. Otherwise negative Brain parenchyma: Patchy hypoattenuation within the periventricular and subcortical white matter, no nspecific but likely representing small vessel ischemic change on a chronic basis. Extra-axial spaces: Mild cerebral atrophy. Intracranial vasculature: Cavernous internal carotid artery calcifications. Otherwise negative Osseous structures: Negative Paranasal sinuses and mastoid air cells: Small mucous retention cyst involving the left sphenoid sin us. Surrounding soft tissues and orbits: Negative IMPRESSION: 1. Age related changes as described above. 2. No evidence of acute intracranial pathology. Report Dictated By: Jason Mccormick MD at 12/30/2018 6:44 PM Report E-Signed By: Jason Mccormick MD at 12/30/2018 6:46 PM [id number]
[2018-12-30] MEDS ORDERED: LABETALOL HCL 20 MG/4 ML SYR IVP ONE (19:00)
[2018-12-30] MEDS ORDERED: LABETALOL HCL 25 MG/5 ML SYRINGE IVP ONE (19:20)
--- NOTE | 2018-12-30 19:20 | RADIOLOGY IMAGING REPORT ---
FACILITY: [facility] PATIENT NAME: Jodee Fam : 1945 MR: [id number] V: [id number] EXAM DATE: ORDERING PHYSICIAN: EMMANUEL GARDINER TECHNOLOGIST: Location: Patient: Jodee Fam : 1945 Visit/Account:[id number] Date of Sevice: 12/30/2018 2 VIEWS CHEST INDICATION: High blood pressure. COMPARISON: 06/07/2018. FINDINGS: Cardiomediastinal silhouette and pulmonary vessels within normal limits. Right Port-A-Cath is in berry ce with the tip in SVC and unchanged. There is no focal infiltrate or lobar consolidation. There is no pneumothorax or pleural effusion. No nodule. Mild chronic interstitial changes are again present. Upper abdomen is unremarkable. No acute bony abnormality. IMPRESSION: 1. Stable chest without acute cardiopulmonary disease. Report Dictated By: Herb Belle at 12/30/2018 7:14 PM Report E-Signed By: Herb Belle at 12/30/2018 7:16 PM [id number]
[2018-12-30] MEDS ORDERED: LISI-362 PO (20:06)
[2018-12-30] MEDS ORDERED: LISINOPRIL 10 MG TAB PO ONE (20:10)
[2018-12-30] MEDS ORDERED: HEPARIN FLSH (PORT) 500 UN/5ML ONE (20:28)
[2018-12-30 20:30] VITALS: BP 141/92
== END 2018-12-30 20:43 | disposition home or self-care (01) ==
LOC: ER 16:42
DX: I16.0 Hypertensive urgency (principal)
CPT/HCPCS: 70450; 71046; 81001; 84484; 85025; 93005; 96374; 99284; A9270; J1642; 82040; 82247; 82310; 82374; 82435; 82565; 82947; 84075; 84132; 84155; 84295; 84450; 84460; 84520; 90471

== ENCOUNTER 2019-01-19 10:34 | Inpatient (IN) | payer MEDICARE ==
[~2019-01-19] VITALS: Ht 160 cm; Wt 62.6 kg
[2019-01-19] VITALS (41 sets, daily range): BP systolic 61–123; BP diastolic 43–81
[2019-01-19] MEDS: PATCH REMOVAL 1 EA TP SCH (01:00)
[~2019-01-19 10:34] MED LIST changes: -AZIT500T47 PO; -BENZ100C26 PO; -CEF300 PO; -GUAI600T57 PO; -LISI5TAB25 PO
[2019-01-19] MEDS ORDERED: NS 0.9% IV ONE (10:50)
--- NOTE | 2019-01-19 11:14 | ER Report ---
History and Physical Time Seen By MD: 10:40 Hx. of Stated Complaint: NOT FEELING WELL, O2 SATS AT HOME 70% HPI/ROS CHIEF COMPLAINT: SOB, productive cough HISTORY OF PRESENT ILLNESS: Patient is a 73-year-old female with multiple past medical history including Waldenstrohm's macroglobulinemia; refer to the emergency department by home health nurse was concerned that the patient has had 5-6 days of progressively worsening weakness as well as cough and shortness of breath. Room air sat was found to be 70%. Patient states over the past few days she can't get out of bed due to weakness normally she can accomplish her daily activities of living. She states that when she lays flat she gets green phlegm that comes into her mouth and has difficulty clearing it. She denies chest pain. She denies chest pressure. She denies abdominal pain she denies nausea vomiting or diarrhea. She is unsure if she's had a fever. REVIEW OF SYSTEMS: Constitutional: No chills Eyes: No discharge. ENT: No sore throat. Cardiovascular: No chest pain, no palpitations. Respiratory: Productive cough shortness of breath Gastrointestinal: No abdominal pain, no vomiting. Genitourinary: No hematuria. Musculoskeletal: No back pain. Skin: No rashes. Neurological: No headache. Allergies: Coded Allergies: shrimp (Verified Allergy, Severe, anaphalaxis, 01/19/19) Penicillins (Verified Allergy, Intermediate, feels high, doesn't help with pain, 01/19/19) sulfamethoxazole (Verified Allergy, Intermediate, SWELLING OF MUCOUS MEMBRANE, 01/19/19) trimethoprim (Verified Allergy, Intermediate, SWELLING OF MUCOUS MEMBRANE, 01/19/19) codeine (Verified Allergy, Unknown, 01/19/19) meperidine (Verified Adverse Reaction, Intermediate, N/V, 01/19/19) Uncoded Allergies: HAYFEVER (Allergy, Intermediate, RUNNY NOSE, SNEEZING, 02/29/12) Home Meds Reported Medications Cholecalciferol (Vitamin D3) (VITAMIN D3) 1,000 Unit Tablet, 1000 UNIT PO BID, TAB 06/07/18 Acyclovir (ACYCLOVIR) 200 Mg Capsule, 200 MG PO BID, #10 CAP 06/07/18 Loperamide Hcl (LOPERAMIDE) 2 Mg Tablet, 8 MG PO PRN 10/07/15 Quetiapine Fumarate (SEROQUEL) 50 Mg Tablet, 50 MG PO QHS 10/07/15 Lamotrigine (LAMICTAL) 200 Mg Tablet, 200 MG PO QHS 10/07/15 Benztropine Mesylate (BENZTROPINE MESYLATE) 1 Mg Tablet, 1 MG PO PRN for cramps 10/07/15 Discontinued Reported Medications Lisinopril (LISINOPRIL) 5 Mg Tablet, 5 MG PO QDAY, TAB 01/19/19 Discontinued Scripts Lisinopril (LISINOPRIL) 10 Mg Tablet, 10 MG PO QDAY, #30 TAB Prov:EMMANUEL GARDINER [employer] INVESTIGATOR 12/30/18 Past Medical/Surgical History Patient has a past medical history of TIA, migraines, pericardial effusion, heart murmur, angina, irregular heartbeat, DVT, asthma, amyloidosis stomach, reflux, HPV, arthritis, rib fractures, HPV, alcohol use, bipolar, cancer. Patient has a surgical history of basal cell cancer removed, cataract surgery, tonsillectomy, back surgery, bunionectomy, hysterectomy, colonoscopy, hysterectomy, cardiac catheter. Patient has a family medical history of CAD, stroke Hx Smoking: No Smoking Status: Never Smoker Exposure to Second Hand Smoke?: No Hx Substance Use Disorder: No Hx Alcohol Use: Yes Constitutional Vital Sign - Last 24 Hours 01/19/19 01/19/19 01/19/19 01/19/19 10:35 10:40 10:45 11:00 Temp 99.0 Pulse 90 90 85 Resp 24 B/P (MAP) 110/59 119/90 (100) 85/60 (68) Pulse Ox 87 87 86 O2 Delivery Oxy Mask O2 Flow Rate 15.0 01/19/19 01/19/19 01/19/19 01/19/19 11:15 11:30 11:34 11:45 Pulse 98 Resp 25 B/P (MAP) 97/50 (66) 101/47 (65) 104/67 (79) Pulse Ox 90 90 FiO2 90.0 01/19/19 01/19/19 01/19/19 01/19/19 11:50 11:50 11:56 12:00 Pulse 98 98 97 Resp 24 24 29 B/P (MAP) 88/66 (73) Pulse Ox 92 94 O2 Delivery Bi-PAP FiO2 100.0 01/19/19 01/19/19 01/19/19 01/19/19 12:15 12:30 12:45 12:56 Temp Pulse 94 98 105 Resp 18 20 29 B/P (MAP) 112/52 (72) 118/52 (74) 116/59 (78) () Pulse Ox 98 95 88 O2 Delivery Bi-PAP FiO2 01/19/19 01/19/19 01/19/19 13:00 13:00 13:15 Pulse 98 94 Resp 17 21 B/P (MAP) () 110/54 (72) 118/51 (73) Pulse Ox 95 100 O2 Delivery Bi-PAP FiO2 Intake and Output 01/19/19 01/19/19 01/20/19 15:00 23:00 07:00 Intake Total 250 ml Balance 250 ml Physical Exam General/Constitutional: Patient is awake, alert, ill-appearing and in respiratory distress. Head: Normocephalic and atraumatic. Eyes: Bilateral conjunctival purulent discharge Ears:External canals are clear. Tympanic membranes are clear with normal landmarks and light reflex. Nares: No rhinorrhea or bleeding. Turbinates are pink and moist. Oropharyngeal: Mucous membranes are moist. There is no pharyngeal erythema or exudate. There are no palatal petechiae. Uvula is midline and symmetrical. Neck: Supple, no adenopathy. Cardiovascular: Heart is regular rate and rhythm without audible murmurs, rubs or gallops. Patient has a port to the right upper chest Pulmonary: Lungs are for scattered rhonchi throughout consolidation to the left lower lung base. Abdomen: Soft, nontender, no guarding or peritoneal signs. Extremities: No gross deformities, No peripheral cyanosis. Able to move all 4 extremities. Neuro: Alert and oriented X3, Skin: No rashes, skin is warm dry and well perfused. Medical Decision Making Data Points Result Diagram: 01/20/19 0448 01/20/19 0448 Laboratory Hematology Test 01/19/19 11:03 01/19/19 12:00 Neutrophils % (Manual) 79 % (39.4-72.5) Band Neutrophils % 10 % Lymphocytes % (Manual) 8 % (17.6-49.6) Monocytes % (Manual) 2 % (4.1-12.4) Eosinophils % (Manual) 1 % (0.4-6.7) Basophils % (Manual) 0 % (0.3-1.4) Platelet Estimate Normal Peripheral Blood Smear Yes Y/N Prothrombin Time 15.0 seconds (12.0-14.4) Prothromb Time International Ratio 1.18 Activated Partial Thromboplast Time 35 seconds (23-35) Lactate 1.1 mmol/L (0.7-2.1) Total Creatine Kinase 237 U/L (30-135) Urine Color Yellow Urine Clarity Slightly-cloudy Urine pH 5.0 pH (4.8-9.5) Urine Specific [place] 1.012 Urine Protein Negative mg/dL (NEGATIVE) Urine Glucose (UA) Negative mg/dL (NEGATIVE) Urine Ketones Negative mg/dL (NEGATIVE) Urine Blood Small (NEGATIVE) Urine Nitrite Negative (NEGATIVE) Urine Bilirubin Negative (NEGATIVE) Urine Urobilinogen Negative mg/dL (0.2-1.9) Urine Leukocyte Esterase Negative (NEGATIVE) Urine RBC 2 /HPF (0-2/HPF) Urine WBC 1 /HPF (0-5/HPF) Urine Squamous Epithelial Cells Few /LPF (NONE-FEW) Urine Bacteria Few /HPF (NONE-FEW) Urine Mucus None /HPF (NONE-FEW) Chemistry Test 01/19/19 11:03 01/19/19 12:00 Neutrophils % (Manual) 79 % (39.4-72.5) Band Neutrophils % 10 % Lymphocytes % (Manual) 8 % (17.6-49.6) Monocytes % (Manual) 2 % (4.1-12.4) Eosinophils % (Manual) 1 % (0.4-6.7) Basophils % (Manual) 0 % (0.3-1.4) Platelet Estimate Normal Peripheral Blood Smear Yes Y/N Prothrombin Time 15.0 seconds (12.0-14.4) Prothromb Time International Ratio 1.18 Activated Partial Thromboplast Time 35 seconds (23-35) Lactate 1.1 mmol/L (0.7-2.1) Total Creatine Kinase 237 U/L (30-135) Urine Color Yellow Urine Clarity Slightly-cloudy Urine pH 5.0 pH (4.8-9.5) Urine Specific [place] 1.012 Urine Protein Negative mg/dL (NEGATIVE) Urine Glucose (UA) Negative mg/dL (NEGATIVE) Urine Ketones Negative mg/dL (NEGATIVE) Urine Blood Small (NEGATIVE) Urine Nitrite Negative (NEGATIVE) Urine Bilirubin Negative (NEGATIVE) Urine Urobilinogen Negative mg/dL (0.2-1.9) Urine Leukocyte Esterase Negative (NEGATIVE) Urine RBC 2 /HPF (0-2/HPF) Urine WBC 1 /HPF (0-5/HPF) Urine Squamous Epithelial Cells Few /LPF (NONE-FEW) Urine Bacteria Few /HPF (NONE-FEW) Urine Mucus None /HPF (NONE-FEW) Coagulation Test 01/19/19 11:03 Prothrombin Time 15.0 seconds Prothromb Time International Ratio 1.18 Activated Partial Thromboplast Time 35 seconds Urinalysis Test 01/19/19 12:00 Urine Color Yellow Urine Clarity Slightly-cloudy Urine pH 5.0 pH (4.8-9.5) Urine Specific [place] 1.012 Urine Protein Negative mg/dL (NEGATIVE) Urine Glucose (UA) Negative mg/dL (NEGATIVE) Urine Ketones Negative mg/dL (NEGATIVE) Urine Blood Small (NEGATIVE) Urine Nitrite Negative (NEGATIVE) Urine Bilirubin Negative (NEGATIVE) Urine Urobilinogen Negative mg/dL (0.2-1.9) Urine Leukocyte Esterase Negative (NEGATIVE) Urine RBC 2 /HPF (0-2/HPF) Urine WBC 1 /HPF (0-5/HPF) Urine Squamous Epithelial Cells Few /LPF (NONE-FEW) Urine Bacteria Few /HPF (NONE-FEW) Urine Mucus None /HPF (NONE-FEW) EKG/Imaging EKG Interpretation EKG shows normal sinus rhythm with a ventricular rate of 98 bpm. Monitor Interpretation: Normal Sinus Rhythm ED Course/Re-evaluation ED Course 01/19/2019 12:09:51 pm patient was sepsis suspected pneumonia based on chest x- ray. Patient requiring BiPAP to assist with respirations and oxygenation she is currently set at 16/8. We will give IV Rocephin and Zithromax based on likely pneumonia. She will likely require admission considered for ICU placement. 01/19/2019 12:18:30 pm initially feeling improved on BiPAP. Case discussed with Dr. Gracia who is confectionery laboratory manager as hospitalist. He will come down to evaluate the patient will admit we are just deciding whether this patient is better served in the ICU versus MedSurg telemetry. Decision to Disposition Date: Jan 19, 2019 Decision to Disposition Time: 15:00 Depart Departure Latest Vital Signs Vital Signs Date Time Temp Pulse Resp B/P (MAP) Pulse Ox O2 Delivery O2 Flow Rate FiO2 01/19/19 13:15 94 21 118/51 (73) 100 01/19/19 13:00 Bi-PAP 01/19/19 12:56 01/19/19 10:40 15.0 Impression: Primary Impression: Pneumonia Additional Impressions: Conjunctivitis Sepsis Condition: Improved Disposition: Admitted from ER (to Dr Gracia) Referrals: EDYTA HENRY DO (PCP) Problem Qualifiers Primary Impression: Pneumonia Pneumonia type: due to unspecified organism Laterality: left Lung location: lower lobe of lung Qualified Codes: J18.1 - Lobar pneumonia, unspecified organism Additional Impressions: Conjunctivitis Conjunctivitis type: acute Acute conjunctivitis type: bacterial Laterality: bilateral Qualified Codes: H10.33 - Unspecified acute conjunctivitis, bilateral Sepsis Sepsis type: sepsis due to unspecified organism Qualified Codes: A41.9 - Sepsis, unspecified organism ALLISON STORM MD Jan 19, 2019 11:14
[2019-01-19 11:20] LABS: PLATELET COUNT, AUTOMATED 334 K/uL (150-450)
[2019-01-19] MEDS ORDERED: ALBUTEROL/IPRATROPIUM 3 ML NEB NEB ONE (11:25)
[2019-01-19 11:28] LABS: INR 1.18
--- NOTE | 2019-01-19 11:57 | RADIOLOGY IMAGING REPORT ---
FACILITY: [facility] - [place] PATIENT NAME: Jodee Fam : 1945 MR: [id number] V: [id number] EXAM DATE: ORDERING PHYSICIAN: ALLISON STORM TECHNOLOGIST: Location: [facility] Patient: Jodee Fam : 1945 Visit/Account:[id number] Date of Sevice: 01/19/2019 Study: Single portable view of the chest. Indication: Cough Comparison study: December 30, 2018 Technique: Single AP view of the chest demonstrates the presence of infiltrate at the left base. This is new as compared to the previous study. The right hemithorax is unremarkable. There is no evidence of pleural effusion or pneumothorax. The mediastinal, cardiac, and diaphragmatic contours are unremarkable. There is an implanted port within the right chest. The tip of the catheter is at the cavoatrial junct ion. IMPRESSION: Infiltrate at left base, new as compared to the previous study. Report Dictated By: Duncan Lindsay at 01/19/2019 11:51 AM Report E-Signed By: Duncan Lindsay at 01/19/2019 11:52 AM WSN:[id number]
[2019-01-19] MEDS ORDERED: AZITHROMYCIN(*) 500 MG 500 MG in NS(*) 0.9% 250 ML BAG 250 ML IVPB ONE (12:00)
[2019-01-19] MEDS ORDERED: cefTRIAXone 1 GM VIAL IVP ONE (12:00)
[2019-01-19] MEDS ORDERED: BENZONATATE 100 MG CAP PO PRN (12:50)
--- NOTE | 2019-01-19 12:51 | EKG ---
FACILITY: [facility] - [place] PATIENT NAME: LEONORA FUNG : [id number] MR: [id number] V: [id number] EXAM DATE: ORDERING PHYSICIAN: ALLISON STORM TECHNOLOGIST: Test Reason : cough Blood Pressure : / mmHG Vent. Rate : 095 BPM Atrial Rate : 095 BPM P-R Int : 172 ms QRS Dur : 086 ms QT Int : 340 ms P-R-T Axes : 056 026 059 degrees QTc Int : 427 ms Normal sinus rhythm Baseline artifact makes strict interpretation difficult in leads V4-5 When compared with ECG of 30-DEC-2018 16:51, No significant change was found Confirmed by ESTRELLITA BROWN ([id number]) on 01/19/2019 9:10:24 PM Referred By: Confirmed By:ESTRELLITA BROWN
[2019-01-19] MEDS ORDERED: BENZTROPINE MESYLATE 1 MG TAB PO PRN (13:05)
[2019-01-19] MEDS: NS(*) 0.9% 1000 ML BAG 1,000 ML IV PRN ×2 (13:07→21:06)
--- NOTE | 2019-01-19 13:12 | History & Physical ---
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 The history is from the patient and the ER physician. Because of her WOB and BIPAP mask, the history is limited from her. She developed a cough with green sputum production about 4-5 days ago. She developed RUQ/R low chest pain with coughing a couple of days ago. She became globally weak about 1-2 days ago. Today, she became much more SOB and was encouraged to come to the ER by a home health nurse. She denies chills. She didn't report n/v/diarrhea. In the ER, she had was borderline tachycardic and had a SBP in the 80's. She was given 2 liters of IVF. She was very hypoxic with significant WOB, so was placed on BIPAP with 90% FiO2. History Problems: (1) Waldenstrom macroglobulinemia Status: Chronic (2) Bipolar disorder Status: Chronic (3) Embolism, arterial (4) TOXOPLASMA OCULOPATHY, UNSPECIFIED (5) Chronic diarrhea (6) History of tonsillectomy (7) History of lumbar laminectomy (8) History of hysterectomy with bilateral oophorectomy (9) CKD (chronic kidney disease) stage 3, GFR 30-59 ml/min Status: Chronic Home Meds Active Scripts Lisinopril (LISINOPRIL) 10 Mg Tablet, 10 MG PO QDAY, #30 TAB Prov:EMMANUEL GARDINER [facility] 12/30/18 Reported Medications Cholecalciferol (Vitamin D3) (VITAMIN D3) 1,000 Unit Tablet, 1000 UNIT PO BID, TAB 06/07/18 Acyclovir (ACYCLOVIR) 200 Mg Capsule, 200 MG PO BID, #10 CAP 06/07/18 Loperamide Hcl (LOPERAMIDE) 2 Mg Tablet, 8 MG PO PRN 10/07/15 Quetiapine Fumarate (SEROQUEL) 50 Mg Tablet, 50 MG PO QHS 10/07/15 Lamotrigine (LAMICTAL) 200 Mg Tablet, 200 MG PO QHS 10/07/15 Benztropine Mesylate (BENZTROPINE MESYLATE) 1 Mg Tablet, 1 MG PO PRN for cramps 10/07/15 Allergies: Coded Allergies: shrimp (Verified Allergy, Severe, anaphalaxis, 01/19/19) Penicillins (Verified Allergy, Intermediate, feels high, doesn't help with pain, 01/19/19) sulfamethoxazole (Verified Allergy, Intermediate, SWELLING OF MUCOUS MEMBRANE, 01/19/19) trimethoprim (Verified Allergy, Intermediate, SWELLING OF MUCOUS MEMBRANE, 01/19/19) codeine (Verified Allergy, Unknown, 01/19/19) meperidine (Verified Adverse Reaction, Intermediate, N/V, 01/19/19) Uncoded Allergies: HAYFEVER (Allergy, Intermediate, RUNNY NOSE, SNEEZING, 02/29/12) Other Social/Family Hx Does not smoke and rarely uses alcohol. Hx Smoking: No Smoking Status: Never Smoker Exposure to Second Hand Smoke?: No Caffeine Intake: Coffee, Tea Caffeine/Cups Per Day: 2 CPD COFFEE, 2 CPD TEA Hx Alcohol Use: Yes Hx Substance Use Disorder: No Review of Systems All Systems Reviewed/Normal: Yes, Except as Noted Exam Vital Signs Vital Signs Date Time Temp Pulse Resp B/P (MAP) Pulse Ox O2 Delivery O2 Flow Rate FiO2 01/19/19 13:15 94 21 118/51 (73) 100 01/19/19 11:50 Bi-PAP 100.0 01/19/19 10:40 15.0 01/19/19 10:35 99.0 General Appearance: Alert, Awake, Other (moderate wob) Neuro: No Gross deficits Eyes: Other (Matting of lids bilaterally. Mildly injected sclera.) ENT: Moist Mucous Membranes Cardiovascular: Regular Rate and Rhythm Respiratory: Other (course BS bilaterally.) Chest: Other (mild tenderness with palpation over the R low anterior rib) GI: Abd Soft and Non-Tender Extremities: No Edema Integumentary: No Jaundice, No Cyanosis Medical Decision Making Data Points Result Diagram: 01/19/19 1103 01/19/19 1103 Item Value Date Time White Blood Count 16.8 k/uL H 01/19/19 1103 Neutrophils % (Manual) 79 % H 01/19/19 1103 Band Neutrophils % 10 % 01/19/19 1103 Lymphocytes % (Manual) 8 % L 01/19/19 1103 Prothromb Time International Ratio 1.18 01/19/19 1103 Creatinine 1.20 mg/dl H 12/26/18 1445 Creatinine 1.30 mg/dl H 12/30/18 1735 Creatinine 1.70 mg/dl H 01/19/19 1103 Lactate 1.1 mmol/L 01/19/19 1103 Aspartate Amino Transf (AST/SGOT) 31 U/L 01/19/19 1103 Alanine Aminotransferase (ALT/SGPT) 18 U/L 01/19/19 1103 Alkaline Phosphatase 113 U/L 01/19/19 1103 Total Creatine Kinase 237 U/L H 01/19/19 1103 Urine Leukocyte Esterase Negative 01/19/19 1200 Urine RBC 2 /HPF 01/19/19 1200 Urine WBC 1 /HPF 01/19/19 1200 Urine Squamous Epithelial Cells Few /LPF 01/19/19 1200 EKG / Imaging Imaging CXR - Infiltrate at left base, new as compared to the previous study. Assessment and Plan Problems: (1) Pneumonia Status: Acute Assessment & Plan: She presented with a couple of days of productive cough/weakness and then worsening SOB today. CXR shows a LLL infiltrate. She has an elevated WBC with bandemia. She is borderline hypotensive. She has significant WOB and hypoxia. She seems to have stabilized with BIPAP. Per oncology records, the patient has a DNR/DNI on file with them and I confirmed with the patient that she doesn't want any cardiac resuscitation and doesn't want to be on a ventilator (even if it was only for a couple of days). She will be continued on Rocephin and Azithromycin. We will try Tylenol and a Lidoderm patch for the rib pain related to coughing. She reports being very sensitive to morphine, so will use sparingly. (2) Sepsis Status: Acute Assessment & Plan: She was borderline hypotensive and tachycardic. Creatinine is elevated. Lactate was wnl. She was given 1.8 liters of NS in the ER. She will be started on methylprednisolone for the pneumonia and to augment her blood pressures. (3) Acute on chronic renal failure Status: Acute Assessment & Plan: Creatinine increased to 1.7. Getting hydration. Will follow. (4) Waldenstrom macroglobulinemia Status: Chronic Assessment & Plan: The patient has a history of Waldenstrom macro globulin anemia which was initially diagnosed in December of 2003. She has received multiple courses of chemotherapy with the last around 2012. She has had an autologous stem cell transplant done for this in May of 2011. She sees the cancer center in [place], but receives most of her care in [place]. She was [facility] seen seen by Dr. Barry team in 02/03/2018, a bone marrow biopsy was performed, and she is scheduled to get BM Biopsies q 3 months, next one was due in 07/2018 (unclear if she did that). Continue chronic acyclovir. (5) Bipolar disorder Status: Chronic Assessment & Plan: Continue chronic Lamictal, Seroquel and prn Benztropine. (6) CKD (chronic kidney disease) stage 3, GFR 30-59 ml/min Status: Chronic Assessment & Plan: Baseline creatinine is 1.2-1.3 Copies to: EDYTA HENRY DO ; Venous Thromboembolism Antithrombotics Is Pt On Any Antithrombotics?: No Exam Sepsis Risk: Severe Sepsis Risk Problem Qualifiers (1) Pneumonia: Pneumonia type: due to unspecified organism Laterality: left Lung location: lower lobe of lung Qualified Codes: J18.1 - Lobar pneumonia, unspecified organism (2) Sepsis: Sepsis type: sepsis due to unspecified organism Qualified Codes: A41.9 - Sepsis, unspecified organism ESTRELLITA BROWN MD Jan 19, 2019 13:12
[2019-01-19] MEDS ORDERED: cefTRIAXone(*) 1 GM VIAL 1 GM in NS(*) 0.9% 100 ML MINI-BAG 100 ML IVPB ONE (13:30)
[2019-01-19] MEDS ORDERED: methylPREDNIS SUCC 125 MG/2ML IVP ONE (14:05)
[2019-01-19] MEDS ORDERED: ACETAMINOPHEN(*)1000 MG/100 ML 100 ML IVPB PRN (14:20)
[2019-01-19] MEDS: LIDOCAINE 5% PATCH TP SCH (14:25)
[2019-01-19] MEDS: TOBRAMYCIN 0.3% OP SOLN 5 ML OU SCH ×3 (14:40→21:45)
[2019-01-19] MEDS ORDERED: LISI5TAB25 PO (15:18)
[2019-01-19] MEDS ORDERED: NOREPINE BITAR* 4 MG/4 ML AMP 4 MG in D5W(*) 250 ML BAG 246 ML IV PRN (16:40)
[2019-01-19] MEDS: ALBUTEROL/IPRATROPIUM 3 ML NEB NEB SCH (17:29)
[2019-01-19] MEDS ORDERED: BACITRACIN OINT 0.9 GM PKT TP PRN (19:45)
[2019-01-19] MEDS: guaiFENesin 600 MG TABCR PO SCH (20:51)
[2019-01-19] MEDS: ACYCLOVIR 200 MG CAP PO SCH (20:51)
[2019-01-19] MEDS: lamoTRIgine 100 MG TAB PO SCH (20:53)
[2019-01-19] MEDS: QUEtiapine FUM 25 MG TAB PO SCH (20:57)
[2019-01-19] MEDS: GUAIFENESIN/DEXTROMETHORPHAN 5 ML PO PRN (21:08)
[2019-01-19] MEDS: ALBUTEROL 2.5 MG/3 ML NEB NEB PRN (21:25)
[2019-01-19] MEDS: methylPREDNIS SUCC 125 MG/2ML IVP SCH (21:41)
[2019-01-20] VITALS (34 sets, daily range): BP systolic 96–132; BP diastolic 51–84; Ht 160 cm; Wt 62.6 kg
[2019-01-20] MEDS: ACETAMINOPHEN 500 MG TAB PO PRN ×2 (03:06→22:05)
[2019-01-20 05:07] LABS: PLATELET COUNT, AUTOMATED 271 K/uL (150-450)
[2019-01-20] MEDS: methylPREDNIS SUCC 125 MG/2ML IVP SCH (06:03)
[2019-01-20] MEDS: TOBRAMYCIN 0.3% OP SOLN 5 ML OU SCH ×5 (06:03→21:43)
[2019-01-20] MEDS: ALBUTEROL 2.5 MG/3 ML NEB NEB PRN (06:26)
[2019-01-20] MEDS: ALBUTEROL/IPRATROPIUM 3 ML NEB NEB SCH ×3 (06:29→17:47)
--- NOTE | 2019-01-20 06:47 | RADIOLOGY IMAGING REPORT ---
FACILITY: [facility] PATIENT NAME: Jodee Fam : 1945 MR: [id number] V: [id number] EXAM DATE: ORDERING PHYSICIAN: ESTRELLITA BROWN TECHNOLOGIST: Location: [facility] Patient: Jodee Fam : 1945 Visit/Account:[id number] Date of Sevice: 01/20/2019 PORTABLE CHEST: Indication: Follow-up evaluation of pneumonia. Technique: A single frontal film was obtained. Comparison: 01/19/2019 Skeletal and soft tissue structures: Intact and unchanged. Heart and mediastinum: The heart size is normal. A port catheter is in the SVC. Lung gomez: There is persistent ill-defined opacity at the left base, compatible with pneumonia. The re is improved expansion. No new focal opacities are identified. Pleural spaces: A small left effusion may be present. Impression: Persistent left basilar opacity, with improved expansion. Report Dictated By: Kasi Cole MD at 01/20/2019 6:36 AM Report E-Signed By: Kasi Cole MD at 01/20/2019 6:44 AM WSN:[id number]
[2019-01-20] MEDS: NS(*) 0.9% 1000 ML BAG 1,000 ML IV PRN (07:10)
[2019-01-20] MEDS ORDERED: MELATONIN 3 MG TAB PO PRN (08:05)
[2019-01-20] MEDS ORDERED: ENOXAPARIN 30 MG/0.3 ML SYR SC SCH (09:00)
[2019-01-20] MEDS: guaiFENesin 600 MG TABCR PO SCH ×2 (09:19→20:43)
[2019-01-20] MEDS: ACYCLOVIR 200 MG CAP PO SCH ×2 (09:19→20:43)
[2019-01-20] MEDS: LIDOCAINE 5% PATCH TP SCH (09:20)
--- NOTE | 2019-01-20 09:27 | Antimicrobial Stewardship ---
Antimicrobial Time Out Antimicrobial Stewardship MD Service: Hospitalist Indications: CAP Antimicrobial Used AZITHROMYCIN 500 QDAY AND CEFTRIAXONE 2G QDAY Start Date: Jan 19, 2019 Culture Results: No Eligible for PO Conversion Eligable for PO Conversion: No Reviewed with Provider Reviewed w/ Provider on Rounds: No Comments Comments Patient admitted with pneumonia and hypoxemia. started on inpatient CAP therapy of azithromycin and a beta-lactam. Patient wbc and oxygen demand have improved overnight. Afebrile overnight, but is on acetaminophen. Continue therapy until patient is able to be transitioned to PO abx. GAYATHRI GODDARD Jan 20, 2019 09:27
--- NOTE | 2019-01-20 10:33 | Medical Nutrition Therapy ---
Nutrition Anthropometrics Height (Inches): 63.00 Height (Calculated Centimeters: 160.435236 Weight (Pounds): 135 Weight (Calculated Kilograms): 61.462 [place] Nutrition Score: Probably Inadequate [place] Nutrition Risk Score: 18 Dietary Referral Nutrition Risk Factors: Unplanned Loss >10lbs Nutrition Risk Comment: pt states chronic diahrrea causing weight loss Physical Findings Physical Appearance: Skin Appearance Skin Appearance: Edema Edema Location Modifier: Edema Location: Type of Edema: Degree of Edema: Gastrointestinal Symptoms GI Symtoms: Diarrhea Tube Present: Bowel Sounds: Recent Bowel Pattern: Stool Characteristics: Nutritional Diagnosis Nutritional Risk Acuity 2: Unintended Wt Loss >5%/mo, Chronic Renal Failure, Sepsis Nutritional Risk Acuity 3: Cancer Past Medical History: HX of waldenstrom macroglobulinemia, bipolar, arterial embolism, toxoplasma oculepathy, chronic diarrhea,tonsillectomy, hysterectomy, CKD-stage 3. Nutritional Acuity: 2-Moderate Nutrition Diagnosis: Involuntary Wt. Loss Nutrition Etiology: Inadeq. Food/Corinne Intake Nutrition Problem/Etiology/Sym: Involuntary weight loss related to inadequate food intake as evidenced by nurses report "10% weight loss unexpected" and pt reporting not consuming food because she was worried it would give her diarrhea. Energy Requirement: 1497 (MSJ, 1.1 TEF, 1.2 AF) Protein Requirement: 62 (1g AA/kg of BW) Fluid Requirement: 1497 (1ml/kcal) Diet Type: Diet as Tolerated FRAN/REG Nutrition Intervention: Cont diet as ordered Food Likes: Pt likes almond milk and yumiko crackers Diet Comment To RSA: OFFER NUTRITIONAL SUPPLEMENT Nutrition Monitoring & Eval Nutrition Goals: Eat 50-100% Meal RD Patient Assessment Time: [address] Assessment Type: RD Assessment Patient Nutrition Acuity: 2-Moderate Follow Up Date: Jan 23, 2019 Nutritional Comment: 01/20: Pt dx pneumonia, sepsis, acute on chronic renal failure, bipolar, CKD-stage 3, waldenstrom macroglobulinemia. HX of waldenstrom macroglobulinemia, bipolar, arterial embolism, toxoplasma oculepathy, chronic diarrhea,tonsillectomy, hysterectomy, CKD-stage 3. Pt reports 10% unexpected wt loss. Pt has decreased calcium (8.3), total protein (4.9), albumin (2.7) levels. Pt has elevated BUN (41), creatinine (1.2), RBG (193) levels. Pt reporting not consuming food because she was worried it would give her diarrhea. Pt currently taking enoxaparin. Pt on FRAN diet with no intake reported. Continue to monitor, offer nutritional supplement. -KANDI KEY Jan 20, 2019 10:27
--- NOTE | 2019-01-20 11:35 | Hospitalist Progress Note ---
Subjective Progress Notes Subjective 73F admitted for sepsis and PNA. Improved significantly overnight with breathing treatments and Abx. To floor today. Physical Exam Vital Signs Date Time Temp Pulse Resp B/P (MAP) Pulse Ox O2 Delivery O2 Flow Rate FiO2 01/20/19 11:22 60 20 01/20/19 11:22 92 High-Flow Nasal Cannula 3.0 01/20/19 08:30 121/61 (81) 01/20/19 06:15 97.5 01/19/19 20:00 60.0 Intake and Output 01/20/19 07:00 Intake Total 4235.05 ml Output Total 1247 ml Balance 2988.05 ml Intake Oral 250 ml IV Total 3985.05 ml Output Urine Total 1245 ml Stool Total 2 ml General Appearance: Alert, Awake, No Acute Distress Neuro: No Gross deficits Cardiovascular: Normal Rhythm & Peripheral Pulses Respiratory: Other (crackles bilaterally) GI: Soft and Non-Tender Extremities: Soft and Non Tender, Warm, Pulses, Perfused Result Diagram: 01/20/19 0448 01/20/19 044 Monitor Interpretation: Normal Sinus Rhythm Assessment and Plan Problems: (1) Pneumonia Status: Acute Assessment & Plan: She presented with a couple of days of productive cough/weakness and then worsening SOB. CXR shows a LLL infiltrate. Stabilized with BIPAP. Empiric Rocephin and Azithromycin started. Tylenol and a Lidoderm patch for the rib pain related to coughing. She reports being very sensitive to morphine, so will use sparingly. (2) Sepsis Status: Acute Assessment & Plan: Resolved, She was borderline hypotensive and tachycardic. Creatinine elevated, Lactate was wnl. She was given 1.8 liters of NS in the ER. Stopped steroid as she reports increased nahed with them. (3) Acute on chronic renal failure Status: Acute Assessment & Plan: Creatinine increased to 1.7 on admission. Improved. (4) Waldenstrom macroglobulinemia Status: Chronic Assessment & Plan: The patient has a history of Waldenstrom macro globulin anemia which was initially diagnosed in December of 2003. She has received multiple courses of chemotherapy with the last around 2012. She has had an autologous stem cell transplant done for this in May of 2011. She sees the cancer center in [place], but receives most of her care in [place]. She was last seen seen by Dr. Barry team in 02/03/2018, a bone marrow biopsy was performed, and she is scheduled to get BM Biopsies q 3 months, next one was due in 07/2018 (unclear if she did that). Continue chronic acyclovir. (5) Bipolar disorder Status: Chronic Assessment & Plan: Continue chronic Lamictal, Seroquel and prn Benztropine. (6) CKD (chronic kidney disease) stage 3, GFR 30-59 ml/min Status: Chronic Assessment & Plan: Baseline creatinine is 1.2-1.3 Exam Sepsis Risk: No Definite Risk Problem Qualifiers (1) Pneumonia: Pneumonia type: due to unspecified organism Laterality: left Lung location: lower lobe of lung Qualified Codes: J18.1 - Lobar pneumonia, unspecified organism (2) Sepsis: Sepsis type: sepsis due to unspecified organism Qualified Codes: A41.9 - Sepsis, unspecified organism NICOLASA NICK DO Jan 20, 2019 11:34
[2019-01-20] MEDS: cefTRIAXone(*) 2 GM VIAL 2 GM in NS(*) 0.9% 100 ML ADDVANT BAG 100 ML IVPB SCH (12:25)
--- NOTE | 2019-01-20 13:01 | NUR ---
Physical Therapy Impression PT eval complete. Recommend PT at [place]. Physical Therapy Goals 1. Mod I bed mobility. 2. Mod I transfers. 3. Mod I gait x 150' with RW. 4. Ascend/descend 12 stairs with rail SBA. Patient's Goals
[2019-01-20] MEDS: AZITHROMYCIN(*) 500 MG 500 MG in NS(*) 0.9% 250 ML BAG 250 ML IVPB SCH (13:31)
--- NOTE | 2019-01-20 13:43 | NUR ---
Occupational Therapy Impression Co-evaluation with PT. Pt. ready for d/c to home when cleared by PT and medically. Pt. may benefit from HH services and MOW upon d/c to home. Occupational Therapy Goals Patient's Goal
[2019-01-20] MEDS: PATCH REMOVAL 1 EA TP SCH (20:43)
[2019-01-20] MEDS: lamoTRIgine 100 MG TAB PO SCH (20:43)
[2019-01-20] MEDS: QUEtiapine FUM 25 MG TAB PO SCH (21:43)
[2019-01-21] MEDS: ALBUTEROL 2.5 MG/3 ML NEB NEB PRN ×2 (02:55→15:33)
[2019-01-21 03:11] VITALS: BP 113/47
[2019-01-21] MEDS: TOBRAMYCIN 0.3% OP SOLN 5 ML OU SCH ×5 (05:52→21:15)
[2019-01-21] MEDS: ALBUTEROL/IPRATROPIUM 3 ML NEB NEB SCH ×3 (06:01→18:00)
[2019-01-21 06:05] LABS: PLATELET COUNT, AUTOMATED 333 K/uL (150-450)
[2019-01-21 07:16] VITALS: BP 120/53
[2019-01-21] MEDS ORDERED: POTASSIUM CHL PWDR 20 MEQ PKT PO SCH (09:00)
[2019-01-21] MEDS: LIDOCAINE 5% PATCH TP SCH (09:21)
[2019-01-21] MEDS: ACYCLOVIR 200 MG CAP PO SCH ×2 (09:21→21:14)
[2019-01-21] MEDS: HYPROMELLOSE 0.4% LUB 15ML BTL OU PRN (09:21)
[2019-01-21] MEDS: guaiFENesin 600 MG TABCR PO SCH ×2 (09:21→21:14)
[2019-01-21] MEDS: HEPARIN FLSH (PORT) 500 UN/5ML IVP PRN (09:22)
--- NOTE | 2019-01-21 10:04 | Hospitalist Progress Note ---
Subjective Progress Notes Subjective This patient was admitted for pneumonia. She had no acute events overnight. Patient Complains of: Cardiovascular: No: Chest Pain Respiratory: No: Shortness of Breath Physical Exam Vital Signs Date Time Temp Pulse Resp B/P (MAP) Pulse Ox O2 Delivery O2 Flow Rate FiO2 01/21/19 07:45 92 Nasal Cannula 2.5 01/21/19 07:16 98.3 76 16 120/53 (75) 01/19/19 20:00 60.0 Intake and Output 01/21/19 07:00 Intake Total 3686 ml Output Total 1960 ml Balance 1726 ml Intake Oral 1490 ml IV Total 2196 ml Output Urine Total 1960 ml Cardiovascular: Regular Rate and Rhythm Respiratory: Clear to Auscultation Result Diagram: 01/21/19 0501/21/19 05 Monitor Interpretation: Normal Sinus Rhythm Assessment and Plan Problems: (1) Pneumonia Status: Acute Assessment & Plan: Her chest x-ray did show an infiltrate on the left. She is currently on ceftriaxone and azithromycin. Her fever has resolved, but her WBC remains elevated (steroids). Her cultures have been negative. (2) Sepsis Status: Acute Assessment & Plan: Resolved. (3) Acute on chronic renal failure Status: Acute Assessment & Plan: Her creatinine has been improving with treatment of her pneumonia. (4) Waldenstrom macroglobulinemia Status: Chronic Assessment & Plan: She does have a history of Waldenstrom macro globulin anemia, which was initially diagnosed in December of 2003. She has received multiple courses of chemotherapy with the last around 2012. She has had an autologous stem cell transplant done for this in May of 2011. She sees the cancer center in [place], but receives most of her care in [place]. She was last seen seen by Dr. Barry in 02/03/2018, a bone marrow biopsy was performed, and she is scheduled to get BM Biopsies q 3 months, next one was due in 07/2018 (unclear if she did that). Continue chronic acyclovir. (5) Bipolar disorder Status: Chronic Assessment & Plan: Continue chronic Lamictal, Seroquel and prn Benztropine. (6) CKD (chronic kidney disease) stage 3, GFR 30-59 ml/min Status: Chronic Assessment & Plan: Baseline creatinine is 1.2-1.3 Exam Sepsis Risk: No Definite Risk Problem Qualifiers (1) Pneumonia: Pneumonia type: due to unspecified organism Laterality: left Lung location: lower lobe of lung Qualified Codes: J18.1 - Lobar pneumonia, unspecified organism (2) Sepsis: Sepsis type: sepsis due to unspecified organism Qualified Codes: A41.9 - Sepsis, unspecified organism AMILCAR BUSH DO Jan 21, 2019 10:04
[2019-01-21 11:54] VITALS: BP 129/64
[2019-01-21] MEDS: cefTRIAXone(*) 2 GM VIAL 2 GM in NS(*) 0.9% 100 ML ADDVANT BAG 100 ML IVPB SCH (11:56)
[2019-01-21] MEDS: AZITHROMYCIN(*) 500 MG 500 MG in NS(*) 0.9% 250 ML BAG 250 ML IVPB SCH (12:53)
[2019-01-21] MEDS ORDERED: clonazePAM 1 MG TAB PO ONE (13:15)
--- NOTE | 2019-01-21 13:21 | NUR ---
Physical Therapy Impression Pt safe to [place] when medically appropriate. Recommend HH PT at [place]. PT to continue to see Pt while at [facility] for stair training until meets stair goal. Physical Therapy Goals 1. Mod I bed mobility. 2. Mod I transfers. 3. Mod I gait x 150' with RW. 4. Ascend/descend 12 stairs with rail SBA. Patient's Goals
[2019-01-21 14:28] VITALS: BP 113/62
[2019-01-21] MEDS: GUAIFENESIN/DEXTROMETHORPHAN 5 ML PO PRN (16:05)
[2019-01-21 20:18] VITALS: BP 101/64
[2019-01-21] MEDS: PATCH REMOVAL 1 EA TP SCH (21:00)
[2019-01-21] MEDS: clonazePAM 1 MG TAB PO SCH (21:00)
[2019-01-21] MEDS: QUEtiapine FUM 25 MG TAB PO SCH (21:14)
[2019-01-21] MEDS: lamoTRIgine 100 MG TAB PO SCH (21:15)
[2019-01-22 04:32] VITALS: BP 106/48
[2019-01-22] MEDS: ACETAMINOPHEN 500 MG TAB PO PRN (04:37)
[2019-01-22] MEDS: TOBRAMYCIN 0.3% OP SOLN 5 ML OU SCH ×5 (05:18→21:15)
[2019-01-22] MEDS: ALBUTEROL/IPRATROPIUM 3 ML NEB NEB SCH ×3 (06:01→16:56)
[2019-01-22 07:24] VITALS: BP 98/51
[2019-01-22] MEDS ORDERED: clonazePAM 0.5 MG TAB PO PRN (07:50)
[2019-01-22] MEDS: ACYCLOVIR 200 MG CAP PO SCH ×2 (08:57→20:35)
[2019-01-22] MEDS: POTASSIUM CHL 20 MEQ TABCR PO SCH (08:57)
[2019-01-22] MEDS: guaiFENesin 600 MG TABCR PO SCH ×2 (08:57→20:35)
[2019-01-22] MEDS: LIDOCAINE 5% PATCH TP SCH (08:59)
--- NOTE | 2019-01-22 09:10 | Hospitalist Progress Note ---
Subjective Progress Notes Subjective The patient has been seeing ants crawling on the wall per nursing staff. Physical Exam Vital Signs Date Time Temp Pulse Resp B/P (MAP) Pulse Ox O2 Delivery O2 Flow Rate FiO2 01/22/19 07:34 93 Nasal Cannula 2.0 01/22/19 07:24 97.7 65 18 98/51 (67) 01/21/19 19:55 60.0 Intake and Output 01/22/19 06:59 Intake Total 775 ml Output Total 300 ml Balance 475 ml Intake Oral 400 ml IV Total 375 ml Output Urine Total 300 ml # Voids 2 # Bowel Movements 1 General Appearance: Alert, Awake, No Acute Distress, Other (Frequent harsh cough during interview/exam.) Cardiovascular: Regular Rate and Rhythm Respiratory: Other (Scattered rhonchi, L>R.) GI: Soft and Non-Tender Extremities: Warm, Perfused Psych: Other Result Diagram: 01/21/19 0501/22/19 05 Monitor Interpretation: Normal Sinus Rhythm Assessment and Plan Problems: (1) Pneumonia Status: Acute Assessment & Plan: Her chest x-ray did show an infiltrate on the left. She is currently on ceftriaxone and azithromycin. Her fever has resolved, but her WBC remains elevated (steroids). Her cultures have been negative. (2) Sepsis Status: Acute Assessment & Plan: Resolved. (3) Acute on chronic renal failure Status: Acute Assessment & Plan: Her creatinine has been improving with treatment of her pneumonia. (4) Waldenstrom macroglobulinemia Status: Chronic Assessment & Plan: She does have a history of Waldenstrom macro globulin anemia, which was initially diagnosed in December of 2003. She has received multiple courses of chemotherapy with the last around 2012. She has had an autologous stem cell transplant done for this in May of 2011. She sees the cancer center in [place], but receives most of her care in [place]. She was last seen seen by Dr. Barry in 02/03/2018, a bone marrow biopsy was performed, and she is scheduled to get BM Biopsies q 3 months, next one was due in 07/2018 (unclear if she did that). Continue chronic acyclovir. (5) Bipolar disorder Status: Chronic Assessment & Plan: Continue chronic Lamictal, Seroquel and prn Benztropine. She is having some visual hallucinations today. This may be due to recent steroid us e. Will monitor. She does not take benzodiazepines regularly at home per her report. Klonopin has been ordered prn. (6) CKD (chronic kidney disease) stage 3, GFR 30-59 ml/min Status: Chronic Assessment & Plan: Baseline creatinine is 1.2-1.3 Time Spent on Plan of Care: < 30 min Exam Sepsis Risk: No Definite Risk Problem Qualifiers (1) Pneumonia: Pneumonia type: due to unspecified organism Laterality: left Lung location: lower lobe of lung Qualified Codes: J18.1 - Lobar pneumonia, unspecified organism (2) Sepsis: Sepsis type: sepsis due to unspecified organism Qualified Codes: A41.9 - Sepsis, unspecified organism KEENAN ALEMAN MD Jan 22, 2019 09:10
[2019-01-22] MEDS: cefTRIAXone(*) 2 GM VIAL 2 GM in NS(*) 0.9% 100 ML ADDVANT BAG 100 ML IVPB SCH (11:26)
[2019-01-22] MEDS: HYPROMELLOSE 0.4% LUB 15ML BTL OU PRN ×2 (11:26→20:40)
[2019-01-22] MEDS: AZITHROMYCIN(*) 500 MG 500 MG in NS(*) 0.9% 250 ML BAG 250 ML IVPB SCH (12:17)
[2019-01-22 14:46] VITALS: BP 116/68
[2019-01-22 18:57] VITALS: BP 89/54
[2019-01-22 19:10] VITALS: BP 124/56
[2019-01-22] MEDS: PATCH REMOVAL 1 EA TP SCH (20:34)
[2019-01-22] MEDS: clonazePAM 1 MG TAB PO SCH (20:35)
[2019-01-22] MEDS: QUEtiapine FUM 25 MG TAB PO SCH (20:36)
[2019-01-22] MEDS: lamoTRIgine 100 MG TAB PO SCH (20:36)
[2019-01-23 03:55] VITALS: BP 127/57
[2019-01-23] MEDS: TOBRAMYCIN 0.3% OP SOLN 5 ML OU SCH ×3 (05:24→13:27)
[2019-01-23] MEDS: HEPARIN FLSH (PORT) 500 UN/5ML IVP PRN ×2 (05:24→13:27)
[2019-01-23 05:40] LABS: PLATELET COUNT, AUTOMATED 356 K/uL (150-450)
[2019-01-23] MEDS: ALBUTEROL/IPRATROPIUM 3 ML NEB NEB SCH ×2 (06:08→11:01)
[2019-01-23 07:16] VITALS: BP 116/49
[2019-01-23] MEDS: guaiFENesin 600 MG TABCR PO SCH (08:56)
[2019-01-23] MEDS: ACYCLOVIR 200 MG CAP PO SCH (08:56)
[2019-01-23] MEDS: POTASSIUM CHL 20 MEQ TABCR PO SCH (08:56)
[2019-01-23] MEDS: LIDOCAINE 5% PATCH TP SCH (08:57)
[2019-01-23] MEDS ORDERED: INFLUENZA VIRUS VAC 0.5ML SYR IM ONLY ONE (09:00)
[2019-01-23] MEDS: cefTRIAXone(*) 2 GM VIAL 2 GM in NS(*) 0.9% 100 ML ADDVANT BAG 100 ML IVPB SCH (11:24)
[2019-01-23] MEDS: AZITHROMYCIN(*) 500 MG 500 MG in NS(*) 0.9% 250 ML BAG 250 ML IVPB SCH (12:15)
--- NOTE | 2019-01-23 12:44 | Medical Nutrition Therapy ---
Nutrition Anthropometrics Height (Inches): 63.00 Height (Calculated Centimeters: 160.744353 Weight (Pounds): 138 Weight (Calculated Kilograms): 62.596 BMI: 24.4 [place] Nutrition Score: Adequate [place] Nutrition Risk Score: 19 Dietary Referral Nutrition Risk Factors: Unplanned Loss >10lbs Nutrition Risk Comment: pt states chronic diahrrea causing weight loss Nutritional Diagnosis Nutritional Risk Acuity 2: Unintended Wt Loss >5%/mo, Chronic Renal Failure (acute on CKD- 3) Nutritional Risk Acuity 3: Fair Appetite, Cancer Past Medical History: HX of waldenstrom macroglobulinemia, bipolar, arterial embolism, toxoplasma oculepathy, chronic diarrhea,tonsillectomy, hysterectomy, CKD-stage 3. Nutritional Acuity: 2-Moderate Nutrition Diagnosis: Involuntary Wt. Loss Nutrition Etiology: Inadeq. Food/Corinne Intake Nutrition Problem/Etiology/Sym: Involuntary weight loss related to inadequate food intake as evidenced by nurses report "10% weight loss unexpected" and pt reporting not consuming food because she was worried it would give her diarrhea. Energy Requirement: 1497 (MSJ, 1.1 TEF, 1.2 AF) Protein Requirement: 62 (1g AA/kg of BW) Fluid Requirement: 1497 (1ml/kcal) Diet Type: Diet as Tolerated FRAN/REG Nutrition Intervention: Cont diet as ordered Food Likes: Pt likes almond milk and yumiko crackers Diet Comment To RSA: OFFER NUTRITIONAL SUPPLEMENT Nutrition Monitoring & Eval Nutrition Goals: Eat 75-100% Meal Nutrition Follow-Up: Fair Intake RD Patient Assessment Time: [address] Assessment Type: RD Re-Assessment Patient Nutrition Acuity: 2-Moderate Follow Up Date: Jan 27, 2019 Nutritional Comment: 4/: Pt dx pneumonia, sepsis, acute on chronic renal failure, bipolar, CKD-stage 3, waldenstrom macroglobulinemia. HX of waldenstrom macroglobulinemia, bipolar, arterial embolism, toxoplasma oculepathy, chronic diarrhea,tonsillectomy, hysterectomy, CKD-stage 3. Pt reports 10% unexpected wt loss. Pt has decreased calcium (8.3), total protein (4.9), albumin (2.7) levels. Pt has elevated BUN (41), creatinine (1.2), RBG (193) levels. Pt reporting not consuming food because she was worried it would give her diarrhea. Pt currently taking enoxaparin. Pt on FRAN diet with no intake reported. Continue to monitor, offer nutritional supplement. -JJ 01/23 Pt cont on FRAN. Intake average 58% of small to regualar portions. alb low at 2.7. BUN cont elevated at 19, Creatinine elevated and stable at 1.2. GFR 44.2. RBG elevated up to 193. No diabetes dx reported. Will cont to monitor and encourage intake. ROSHAN FLOYD Jan 23, 2019 12:44
--- NOTE | 2019-01-23 14:22 | NUR ---
Physical Therapy Impression Discussed with Pt how to obtain requested DME. Pt verbalized understanding. Pt is safe for DC when medically appropriate. Physical Therapy Goals 1. Mod I bed mobility. 2. Mod I transfers. 3. Mod I gait x 150' with RW. 4. Ascend/descend 12 stairs with rail SBA. Patient's Goals
--- NOTE | 2019-01-23 14:22 | NUR ---
PHYSICAL THERAPY INFORMATION TRANSFER SHEET BED MOBILITY: Modified I/ AE TRANSFERS: Independent GAIT: 1000 ' with O2 RW and Modified I/ AE Weightbearing Status: STAIRS: 8 with Modified I/ AE. EXERCISES: Verbalizes Needs: Yes Understands Directions Yes Cooperative: Yes Family Teaching: No Physical Therapy Comment:
[2019-01-23] MEDS ORDERED: CEF300 PO (14:39)
[2019-01-23] MEDS ORDERED: AZIT500T47 PO (14:39)
[2019-01-23] MEDS ORDERED: GUAI600T57 PO (14:39)
[2019-01-23] MEDS ORDERED: BENZ100C26 PO (14:39)
--- NOTE | 2019-01-23 14:53 | Hospitalist Depart ---
Discharge Summary Reason for Hosp/Final Diag: (1) Pneumonia Status: Acute Hospital Course & Plan: Her chest x-ray did show an infiltrate on the left. She was initially placed on IV ceftriaxone and azithromycin. Her fever resolved and her WBC count returned to normal. Clinically she has been doing very well. She is tolerating oral intake without problems. She has also been doing well with low levels of activity. She was able to do stairs with Physical Therapy. She was still requiring low flow oxygen to maintain her saturations. She will need follow up CXR in 4-6 weeks to make sure the infiltrate clears. She will also need short term follow up with Dr. Fontanez. (2) Acute on chronic renal failure Status: Acute Hospital Course & Plan: Her creatinine was 1.7 at the time of admission and has been improving with treatment of her pneumonia. At the time of discharge her creatinine is 1.2. She will need to follow up with Dr. Fontanez to recheck this in the next few weeks. (3) Waldenstrom macroglobulinemia Status: Chronic Hospital Course & Plan: She does have a history of Waldenstrom macroglobulinemia, which was initially diagnosed in December of 2003. She has received multiple courses of chemotherapy with the last around 2012. She has had an autologous stem cell transplant done for this in May of 2011. She [facility] with the [facility] in [place], but receives most of her care in [place]. She will continue her chronic acyclovir. (4) Bipolar disorder Status: Chronic Hospital Course & Plan: Continue chronic Lamictal, Seroquel and prn Benztropine. Departure Weight (Pounds): 138 Weight (Ounces): 8.0 Result Diagram: 01/23/1952001/23/19520 Item Value Date Time Potassium Level 3.7 mmol/L 01/19/19 1103 Chloride Level 98 mmol/L 01/19/19 1103 Sodium Level 135 mmol/L L 01/19/19 1103 Carbon Dioxide Level 26 mmol/L 01/19/19 1103 Blood Urea Nitrogen 52 mg/dl H 01/19/19 1103 Creatinine 1.70 mg/dl H 01/19/19 1103 Glomerular Filtration Rate Calc 29.5 01/19/19 1103 Random Glucose 116 mg/dl H 01/19/19 1103 Calcium Level 8.9 mg/dl 01/19/19 1103 Total Bilirubin 0.6 mg/dl 01/19/19 1103 Aspartate Amino Transf (AST/SGOT) 31 U/L 01/19/19 1103 Alanine Aminotransferase (ALT/SGPT) 18 U/L 01/19/19 1103 Alkaline Phosphatase 113 U/L 01/19/19 1103 Total Protein 6.7 g/dl 01/19/19 1103 Albumin 3.5 g/dl 01/19/19 1103 Sodium Level 138 mmol/L 01/21/19 0511 Potassium Level 3.4 mmol/L L 01/21/19 0511 Chloride Level 107 mmol/L 01/21/19 0511 Blood Urea Nitrogen 34 mg/dl H 01/21/19 0511 Creatinine 1.20 mg/dl H 01/21/19 0511 Glomerular Filtration Rate Calc 44.2 01/21/19 0511 Random Glucose 175 mg/dl H 01/21/19 0511 Calcium Level 8.9 mg/dl 01/21/19 0511 Prothrombin Time 15.0 seconds H 01/19/19 1103 Activated Partial Thromboplast Time 35 seconds 01/19/19 1103 Prothromb Time International Ratio 1.18 01/19/19 1103 White Blood Count 16.8 k/uL H 01/19/19 1103 Hemoglobin 11.8 g/dL L 01/19/19 1103 Hematocrit 36.6 % 01/19/19 1103 Platelet Count 334 K/uL 01/19/19 1103 White Blood Count 15.0 k/uL H 01/21/19 0511 Hemoglobin 10.3 g/dL L 01/21/19 0511 Hematocrit 31.8 % L 01/21/19 0511 Platelet Count 333 K/uL 01/21/19 0511 Urine Color Yellow 01/19/19 1200 Urine Clarity Slightly-cloudy 01/19/19 1200 Urine pH 5.0 pH 01/19/19 1200 Urine Specific [place] 1.012 01/19/19 1200 Urine Protein Negative mg/dL 01/19/19 1200 Urine Glucose (UA) Negative mg/dL 01/19/19 1200 Urine Ketones Negative mg/dL 01/19/19 1200 Urine Blood Small 01/19/19 1200 Urine Nitrite Negative 01/19/19 1200 Urine Bilirubin Negative 01/19/19 1200 Urine Urobilinogen Negative mg/dL 01/19/19 1200 Urine Leukocyte Esterase Negative 01/19/19 1200 Urine RBC 2 /HPF 01/19/19 1200 Urine WBC 1 /HPF 01/19/19 1200 Urine Squamous Epithelial Cells Few /LPF 01/19/19 1200 Urine Bacteria Few /HPF 01/19/19 1200 Urine Mucus None /HPF 01/19/19 1200 Influenza Virus Type A (PCR) Negative 01/19/19 1423 Influenza Virus Type B (PCR) Negative 01/19/19 1423 [facility] *LIVE* [address] [facility] [place] [address] MARIELY MEZA M.D., DIRECTOR OF LABORATORY SERVICES NICOLASA BARON M.D., PATHOLOGIST RUN DATE: 01/21/19 Specimen Inquiry Report PAGE 1 RUN TIME: 926 PATIENT: JODEE FAM ACCT: [id number] LOC: MED U: [id number] AGE/SX: 73/F ROOM: [facility] RE01/19/[address]: ESTRELLITA BROWN MD : 1945 BED: 272 DIS: STATUS: ADM IN TLOC: SPEC #: [id number] FRANK: 01/19/19 STATUS: COMP REQ #: [id number] RECD: 01/19/19-1213 [facility] DR: ALLISON STORM MD SOURCE: ADINA ENTR: 01/19/19-[address] [facility] [address]: EDYTA FONTANEZ DO [facility]: ORDERED: CULT URINE Procedure Result Verified URINE CULTURE Final 01/21/19-925 NO GROWTH AFTER 2 DAYS [facility] *[facility]* [address] [place] [address] MARIELY MEZA M.D., DIRECTOR OF LABORATORY SERVICES NICOLASA BARON M.D., PATHOLOGIST RUN DATE: 01/23/19 Specimen Inquiry Report PAGE 1 RUN TIME: 1000 PATIENT: JODEE FAM ACCT: [id number] LOC: MED U: [id number] AGE/SX: 73/F ROOM: 227 RE01/19/[address]: ESTRELLITA BROWN MD : 1945 BED: 272 DIS: STATUS: ADM IN TLOC: SPEC #: [id number] FRANK: 01/19/19 STATUS: RES REQ #: [id number] RECD: 01/19/[address]: ALLISON STORM MD SOURCE: BLOOD PER ENTR: 01/19/19-[address]: EDYTA FONTANEZ DO [facility]: ORDERED: CULT BLOOD --- --------- Procedure Result Verified BLOOD CULTURE Preliminary 01/23/19-1000 NO GROWTH AFTER 4 DAYS, REINCUBATED [facility] *LIVE* [address] [facility] [place] [address] MARIELY MEZA M.D., DIRECTOR OF LABORATORY SERVICES NICOLASA BARON M.D., PATHOLOGIST RUN DATE: 01/23/19 Specimen Inquiry Report PAGE 1 RUN TIME: 1000 PATIENT: JODEE FAM ACCT: [id number] LOC: MED U: [id number] AGE/SX: 73/F ROOM: [facility] RE01/19/[address]: ESTRELLITA BROWN MD : 1945 BED: 272 DIS: STATUS: ADM IN TLOC: SPEC #: [id number] FRANK: 01/19/19 STATUS: RES REQ #: [id number] RECD: 01/19/19 [facility] DR: ALLISON STORM MD SOURCE: BLOOD PER ENTR: 01/19/19-[address] [facility] [address]: EDYTA FONTANEZ DO [facility]: ORDERED: CULT BLOOD Procedure Result Verified BLOOD CULTURE Preliminary 01/23/19-1000 NO GROWTH AFTER 4 DAYS, REINCUBATED Imaging PATIENT NAME: Jodee Fam : 1945 MR: [id number] V: [id number] EXAM DATE: ORDERING PHYSICIAN: ALLISON STORM TECHNOLOGIST: Location: [facility] [place] Patient: Jodee Fam : 1945 Visit/Account:[id number] Date of Sevice: 01/19/2019 Study: Single portable view of the chest. Indication: Cough Comparison study: December 30, 2018 Technique: Single AP view of the chest demonstrates the presence of infiltrate at the left base. This is new as compared to the previous study. The right hemithorax is unremarkable. There is no evidence of pleural effusion or pneumothorax. The mediastinal, cardiac, and diaphragmatic contours are unremarkable. There is an implanted port within the right chest. The tip of the catheter is at the cavoatrial junction. IMPRESSION: Infiltrate at left base, new as compared to the previous study. Report Dictated By: Duncan Lindsay at 01/19/2019 11:51 AM Report E-Signed By: Duncan Lindsay at 01/19/2019 11:52 AM WSN:[id number] Condition: Improved Discharge: Home Time Spent: > 30 min Discharge Instructions Home Meds Active Scripts Benzonatate (BENZONATATE) 100 Mg Capsule, 100-200 MG PO Q8H PRN for cough, #20 CAPSULE 1 Refill Prov:CHRIS ALEMAN MD 01/23/19 Guaifenesin (MUCINEX) 600 Mg Tablet.er, 600 MG PO BID for 5 Days, #10 TAB 1 Refill Prov:CHRIS ALEMAN MD 01/23/19 Cefdinir 300 Mg Cap (OMNICEF 300 MG CAP (OR EQUIV)) 300 Mg Cap, 300 MG PO BID for 5 Days, #10 CAP 0 Refills Prov:CHRIS ALEMAN MD 01/23/19 Azithromycin (AZITHROMYCIN) 500 Mg Tablet, 1 TAB PO QDAY, #3 TAB 0 Refills Prov:CHRIS ALEMAN MD 01/23/19 Reported Medications Cholecalciferol (Vitamin D3) (VITAMIN D3) 1,000 Unit Tablet, 1000 UNIT PO BID, T AB 06/07/18 Acyclovir (ACYCLOVIR) 200 Mg Capsule, 200 MG PO BID, #10 CAP 06/07/18 Loperamide Hcl (LOPERAMIDE) 2 Mg Tablet, 8 MG PO PRN 10/07/15 Quetiapine Fumarate (SEROQUEL) 50 Mg Tablet, 50 MG PO QHS 10/07/15 Lamotrigine (LAMICTAL) 200 Mg Tablet, 200 MG PO QHS 10/07/15 Benztropine Mesylate (BENZTROPINE MESYLATE) 1 Mg Tablet, 1 MG PO PRN for cramps 10/07/15 Discontinued Reported Medications Lisinopril (LISINOPRIL) 5 Mg Tablet, 5 MG PO QDAY, TAB 01/19/19 Discontinued Scripts Lisinopril (LISINOPRIL) 10 Mg Tablet, 10 MG PO QDAY, #30 TAB Prov:EMMANUEL GARDINER CRITICAL CARE PHYSICIAN ASSISTANT 12/30/18 Follow up Referrals: Family Practice with EDYTA FONTANEZ DO Diet: Regular Activity: As Tolerated Special Instructions: Home oxygen at 2L via nasal cannula continuous. Follow up with Dr. Fontanez in next 5-7 days or sooner if any problems. Copies to: EDYTA FONTANEZ DO ; Venous Thromboembolism Antithrombotics Is Pt On Any Antithrombotics?: No Problem Qualifiers (1) Pneumonia: Pneumonia type: due to unspecified organism Laterality: left Lung location: lower lobe of lung Qualified Codes: J18.1 - Lobar pneumonia, unspecified organism CHRIS ALEMAN MD Jan 23, 2019 14:53
== END 2019-01-23 16:15 | disposition home health service (06) | DRG 871 ==
LOC: ER 10:49 → ICU 13:23 → MED 01-20 10:50
PROVIDERS: ADMIT Internal Medicine; ATTEND Internal Medicine
PROC: 5A09357 Assistance with Respiratory Ventilation, Less than 24 Consecutive Hours, Continuous Positive Airway Pressure (ICD-10-PCS; principal; 2019-01-19)
DX: A41.9 Sepsis, unspecified organism (principal); J18.1 Lobar pneumonia, unspecified organism; Z94.84 Stem cells transplant status; B58.00 Toxoplasma oculopathy, unspecified; N17.9 Acute kidney failure, unspecified; C83.00 Small cell B-cell lymphoma, unspecified site; H10.33 Unspecified acute conjunctivitis, bilateral; N18.3 Chronic kidney disease, stage 3 (moderate); F31.9 Bipolar disorder, unspecified; R44.1 Visual hallucinations; T38.0X5A Adverse effect of glucocorticoids and synthetic analogues, initial encounter; Z86.711 Personal history of pulmonary embolism; J30.1 Allergic rhinitis due to pollen; Z88.8 Allergy status to other drugs, medicaments and biological substances; Z88.6 Allergy status to analgesic agent; Z66 Do not resuscitate; Z92.21 Personal history of antineoplastic chemotherapy; Z91.013 Allergy to seafood; Z88.0 Allergy status to penicillin; Z88.2 Allergy status to sulfonamides
CPT/HCPCS: 36415; 71045; 81001; 82040; 82247; 82310; 82374; 82435; 82550; 82565; 82947; 83605; 84075; 84132; 84155; 84295; 84450; 84460; 84520; 85025; 85610; 85730; 87040; 87088; 87502; 93005; 94640; 94660; 94667; 94668; 96361; 96365; 96367; 96375; 97162; 97165; 99285; A4353; C1758; C9399; J0131; J0456; J0696; J1642; J1650; J2930; J7030; J7050; J7060; J7613

== ENCOUNTER → 2019-01-19 | Outpatient (CLI) | payer MEDICARE ==
[~2019-01-19] MED LIST changes: +AZIT500T47 PO; +BENZ100C26 PO; +CEF300 PO; +GUAI600T57 PO; +LISI-362 PO; +LISI5TAB25 PO
[2019-01-20 08:14] VITALS: BMI 23.9
== END ==
LOC: AMB 10:06
PROVIDERS: ATTEND Nurse Practitioner
DX: R06.02 Shortness of breath (principal); R09.02 Hypoxemia; R05 Cough
CPT/HCPCS: A0425; A0427

== ENCOUNTER → 2019-01-30 | Outpatient (CLI) | payer MEDICARE ==
[2019-01-20 08:14] VITALS: BMI 23.9
[~2019-01-30] MED LIST changes: +AZIT500T47 PO; +BENZ100C26 PO; +CEF300 PO; +GUAI600T57 PO; +LISI5TAB25 PO
--- NOTE | 2019-01-30 12:53 | RADIOLOGY IMAGING REPORT ---
FACILITY: [facility] [place] PATIENT NAME: Jodee Fam : 1945 MR: [id number] V: [id number] EXAM DATE: ORDERING PHYSICIAN: EDYTA HENRY TECHNOLOGIST: Location: [facility] [place] Patient: Jodee Fam : 1945 Visit/Account:[id number] Date of Sevice: 01/30/2019 EXAMINATION: Doppler ultrasound carotid HISTORY: Left carotid bruit. COMPARISON: None. TECHNIQUE: Real-time grayscale, color flow and Doppler sonography of the cervical carotid and vertebr al arteries is performed. Stenosis % is determined from velocity criteria extrapolated from diameter data as defined by the Soc iety of Radiologists in Ultrasound Consensus Conference Radiology 2003; 229;340-346. FINDINGS: Plaque: Mild calcified plaque of the left carotid bulb. Waveforms: Normal. Vertebral arteries: Antegrade flow in both vertebral arteries. Peak systolic velocities are listed below in centimeters/second: Right: CCA proximal: 121 CCA mid: 99 CCA distal: 88 Bulb: 57 ICA proximal: 75 ICA mid: 131 ICA distal: 103 ECA: 125 Vertebral: 105 ICA/CCA ratio: 1.1 Left: CCA proximal: 144 CCA mid: 109 CCA distal: 103 Bulb: 78 ICA proximal: 85 ICA mid: 93 ICA distal: 114 ECA: 107 Vertebral: 84 ICA/CCA ratio: 0.8 IMPRESSION: 1. Mildly elevated velocity in the mid cervical right internal carotid artery without visible stenos is. 2. Mild calcified plaque of the left carotid bulb without elevated velocities compatible with stenos is of less than 50% of the left internal carotid artery. Report Dictated By: Heidi Hale MD at 01/30/2019 12:45 PM Report E-Signed By: Heidi Hale MD at 01/30/2019 12:49 PM WSN:[id number]
== END ==
LOC: US 01-13 01:19
PROVIDERS: ATTEND Family Medicine
DX: R09.89 Other specified symptoms and signs involving the circulatory and respiratory systems (principal)
CPT/HCPCS: 93880

== ENCOUNTER 2019-02-07 09:00 | Outpatient (RCR) | payer MEDICARE ==
[2018-11-24 13:50] VITALS: BP 168/81
[2018-11-24 14:10] LABS: PLATELET COUNT, AUTOMATED 201 K/uL (150-450)
[2018-11-24] MEDS: HEPARIN FLSH (PORT) 500 UN/5ML IVP PRN (14:51)
[2018-12-26 14:18] VITALS: BP 178/84
[2018-12-26 15:23] LABS: PLATELET COUNT, AUTOMATED 213 K/uL (150-450)
[2018-12-26] MEDS: HEPARIN FLSH (PORT) 500 UN/5ML IVP PRN (15:24)
[2019-01-20 08:14] VITALS: BMI 23.9
[~2019-02-07 09:00] MED LIST changes: +ALTEPLASE RECOMB 2 MG VIAL IVP PRN; +DEXTROSE 5%(*) 100 ML BAG 100 ML IVPB PRN; +LIDOCAINE/SOD BICARB 8.4% SYR ID PRN; +NS(*) 0.9% 100 ML BAG 100 ML IVPB PRN; +NS(*) 0.9% 500 ML BAG 500 ML IV PRN; +WATER FOR INJ,STERILE 20 ML IVP PRN
[2019-02-07 09:03] VITALS: BP 134/66
[2019-02-07 09:22] LABS: PLATELET COUNT, AUTOMATED 220 K/uL (150-450)
[2019-02-07] MEDS: HEPARIN FLSH (PORT) 500 UN/5ML IVP PRN (09:28)
== END 2019-02-21 ==
LOC: SPU 09:00
PROVIDERS: ATTEND Internal Medicine Hematology & Oncology
DX: E85.9 Amyloidosis, unspecified (principal); C88.0 Waldenstrom macroglobulinemia; K58.0 Irritable bowel syndrome with diarrhea
CPT/HCPCS: 36591; 82248; 83735; 84100; 85025; J1642; 82040; 82247; 82310; 82374; 82435; 82565; 82947; 84075; 84132; 84155; 84295; 84450; 84460; 84520

== ENCOUNTER → 2019-02-21 | Outpatient (CLI) | payer MEDICARE ==
[2019-01-20 08:14] VITALS: BMI 23.9
[~2019-02-21] MED LIST changes: -ALTEPLASE RECOMB 2 MG VIAL IVP PRN; -DEXTROSE 5%(*) 100 ML BAG 100 ML IVPB PRN; -LIDOCAINE/SOD BICARB 8.4% SYR ID PRN; -NS(*) 0.9% 100 ML BAG 100 ML IVPB PRN; -NS(*) 0.9% 500 ML BAG 500 ML IV PRN; -WATER FOR INJ,STERILE 20 ML IVP PRN
--- NOTE | 2019-02-21 13:02 | RADIOLOGY IMAGING REPORT ---
FACILITY: [facility] PATIENT NAME: Jodee Fam : 1945 MR: [id number] V: [id number] EXAM DATE: ORDERING PHYSICIAN: EDYTA HENRY TECHNOLOGIST: Location: [facility] Patient: Jodee Fam : 1945 Visit/Account:[id number] Date of Sevice: 02/21/2019 CHEST PA LAT INDICATION: Follow-up pneumonia COMPARISON: 01/20/2019 FINDINGS: Heart size within normal limits. Right-sided Mediport is stable in position There is no focal infiltrate or lobar consolidation. There is no pneumothorax or pleural effusion. Previously described left lower lobe infiltrate has r esolved. IMPRESSION: 1. No acute cardiopulmonary process. Interval resolution of left lower lobe infiltrate Report Dictated By: Sumanth Benitez at 02/21/2019 12:57 PM Report E-Signed By: Sumanth Benitez at 02/21/2019 12:58 PM [email or web address]
== END ==
LOC: RAD 11:39
PROVIDERS: ATTEND Family Medicine
DX: J18.9 Pneumonia, unspecified organism (principal)
CPT/HCPCS: 71046

== ENCOUNTER 2019-04-14 13:00 | Outpatient (RCR) | payer MEDICARE ==
[2019-01-20 08:14] VITALS: BMI 23.9
[2019-03-14] MEDS: HEPARIN FLSH (PORT) 500 UN/5ML IVP PRN (16:00)
[2019-03-14 16:05] VITALS: BP 155/80
[2019-03-14 16:24] LABS: PLATELET COUNT, AUTOMATED 240 K/uL (150-450)
[~2019-04-14 13:00] MED LIST changes: +ALTEPLASE RECOMB 2 MG VIAL IVP PRN; +DEXTROSE 5%(*) 100 ML BAG 100 ML IVPB PRN; +LIDOCAINE/SOD BICARB 8.4% SYR ID PRN; +NS(*) 0.9% 100 ML BAG 100 ML IVPB PRN; +NS(*) 0.9% 250 ML BAG 250 ML IVPB PRN; +WATER FOR INJ,STERILE 20 ML IVP PRN
[2019-04-14 13:37] VITALS: BP 135/70
[2019-04-14] MEDS: HEPARIN FLSH (PORT) 500 UN/5ML IVP PRN (13:49)
[2019-04-14 14:01] LABS: PLATELET COUNT, AUTOMATED 211 K/uL (150-450)
== END 2019-05-10 08:31 | disposition home or self-care (01) ==
LOC: SPU 13:00
PROVIDERS: ATTEND Internal Medicine Hematology & Oncology
DX: C88.0 Waldenstrom macroglobulinemia (principal); E85.9 Amyloidosis, unspecified; Z08 Encounter for follow-up examination after completed treatment for malignant neoplasm; K58.0 Irritable bowel syndrome with diarrhea
CPT/HCPCS: 36591; 82977; 83735; 84100; 85025; J1642; 82040; 82247; 82248; 82310; 82374; 82435; 82565; 82947; 84075; 84132; 84155; 84295; 84450; 84460; 84520